=== PATIENT | female | born 1990 | race Caucasian/White ===

== ENCOUNTER 2020-06-16 16:31 | Emergency (ER) | payer OTHER, SELFPAY ==
[2020-06-16] VITALS (10 sets, daily range): BP systolic 101–139; BP diastolic 57–84; PULSE 100–122; RESP 16–30; TEMP 37.3; O2SAT 95–98
--- NOTE | ~2020-06-16 | XR_ITS ---
EXAMINATION: XR chest 1V portable 06/16/2020 17:48 INDICATION: Cough and fever. Body aches. PROCEDURE: AP portable chest COMPARISON: 09/11/2006 FINDINGS: The lungs are clear. The cardiomediastinal silhouette is within normal limits. There are no pleural effusions. There is no pneumothorax suspected. IMPRESSION: 1: NO ACUTE CARDIOPULMONARY DISEASE. Reviewed, dictated and finalized at location A. NURSE
--- NOTE | 2020-06-16 16:46 | ED.URI ---
HPI - URI/Sore Throat General Chief Complaint: Upper Respiratory Infection Stated Complaint: I dont feel good Time Seen by Provider: 06/16/20 16:45 History of Present Illness HPI Narrative: 30 yo female presents to the ED for URI symptoms. She reports fever, cough, congestion, BUCK[place], and nausea for the past 3 days. No know sick contacts. No SOB. Related Data Allergies Allergy/AdvReac Type Severity Reaction Status Date / Time cephalexin Allergy Mild HIVES Verified 05/07/19 22:01 Review of Systems Review of Systems: All systems reviewed & are unremarkable except as noted in HPI and below Constitutional: Constitutional: Reports chills and Reports fever(s) Eyes: Eyes: Reports no additional eye complaints ENT: Reports nasal congestion and Denies sore throat Cardiovascular: Cardiovascular: Denies chest pain Respiratory: Respiratory: Reports chest congestion, Reports cough and Denies dyspnea Gastrointestinal: Gastrointestinal: Denies abdominal pain, Reports nausea and Denies vomiting Musculoskeletal: Musculoskeletal: Reports myalgias Neurologic: Denies confusion, Denies numbness and Denies weakness [facility] Past Medical History Medical History (Updated 06/24/20 @ 12:21 by Gaston Marie MD) Healthy female adult Social History Social History Smoking status: Unknown if ever smoked Gender identity (if verbalized by the patient): Female Exam Const: General: no acute distress and alert Orientation/consciousness: patient oriented x3 HENMT: Head: normal to inspection Ears: TM's normal bilaterally and EAC's normal Eyes: Pupils: Equal, round and reactive pupils present EOM: EOMs intact bilaterally Resp: Effort & Inspection: normal respiratory effort Auscultation: clear to auscultation bilaterally Cardio: Rate: regular rate Rhythm: regular rhythm GI: GI Palp: Yes Soft to palpation and No Tenderness to palpation present (GI) Skin: General skin exam: normal color Neuro: General: patient oriented x3, moves all extremities and CN's II-XI intact bilaterally Speech: normal speech Gait exam (Neuro): Normal gait present Extrem: General: normal to inspection Course Vital Signs Vital signs: Vital Signs Temperature 37.3 C 06/16/20 16:37 Pulse Rate 122 H 06/16/20 16:37 Respiratory Rate 18 06/16/20 16:37 Blood Pressure 139/84 06/16/20 16:37 Pulse Oximetry 98 06/16/20 16:37 Temperature 37.3 C 06/16/20 16:37 Pulse Rate 100 06/16/20 19:26 Respiratory Rate 20 06/16/20 19:26 Blood Pressure 101/57 L 06/16/20 19:26 Pulse Oximetry 96 06/16/20 19:26 MDM - URI/Sore Throat MDM Narrative Medical decision making narrative: Symptoms suspicious for COVID-19. Vital stable. Will test and treat symptomatically Differential Diagnosis Differential diagnosis: Likely upper respiratory infection, influenza and other (COVID-19) Medical Records Attestation: I reviewed the patient's medical records. Lab Data Attestation: I reviewed the patient's lab results. Result diagrams: 06/16/20 18:03 06/16/20 18:03 Labs: Lab Results 06/16/20 06/16/20 06/16/20 Range/Units 18:03 18:03 18:03 WBC 2.0 L (4.5-10.0) K/mm3 RBC 4.62 (4.2-5.4) M/mm3 Hgb 13.1 (12.0-15.0) g/dL Hct 39.5 (37.0-47.0) % MCV 85.5 (80-100) fl MCH 28.4 (26-34) pg MCHC 33.2 (32-36) g/dl RDW 13.0 (11.5-14.5) % Plt Count 126 L (150-375) k/mm3 MPV 10.6 H (7.4-10.4) fl Immature Gran % (Auto) 0.5 (0-0.5) % Neut % (Auto) 61.7 (45.5-73.1) % Lymph % (Auto) 30.4 (18.3-44.2) % [place] % (Auto) 7.4 (2.6-8.5) % Eos % (Auto) 0.0 (0-4.4) % Baso % (Auto) 0.0 L (0.2-1.2) % Lymph # (Auto) 0.62 L (0.9-3.2) K/mm3 [place] # (Auto) 0.2 (0.1-0.6) K/mm3 Eos # (Auto) 0.0 (0-0.3) K/mm3 Baso # (Auto) 0.0 (0.0-0.1) K/mm3 Abs Immat Gran (auto) 0.01 (0.00-0.031) K/mm3 Ab
--- NOTE | 2020-06-16 17:10 | PC.NURSE ---
EMT student and RN x2 at bedside attempting blood draw and IV start.
[2020-06-16] MEDS: SODIUM CHLORIDE 0.9% IV 1,000 ML 999 ML IV CONT (18:00)
[2020-06-16] MEDS: ONDANSETRON INJ 4 MG/2 ML VIAL IV PUSH (18:00)
[2020-06-16] MEDS: KETOROLAC 30 MG/ML VIAL (*BKC) IV PUSH (18:01)
[2020-06-16 18:17] LABS: Hematocrit 39.5 % (37.0-47.0); Hemoglobin 13.1 g/dL (12.0-15.0); Immature Granulocyte Absolute 0.01 K/mm3 (0.00-0.031); Immature Granulocyte Percent A 0.5 % (0-0.5); Immature Platelet Fraction Pct 2.8 % (0.9-11.2); Lymphocytes Absolute Auto 0.62 K/mm3 (0.9-3.2); Lymphocytes Percent Auto 30.4 % (18.3-44.2); Mean Corpuscular HGB Conc 33.2 g/dl (32-36); Mean Corpuscular Hemoglobin 28.4 pg (26-34); Mean Corpuscular Volume 85.5 fl (80-100); Mean Platelet Volume 10.6 fl (7.4-10.4); Monocytes Absolute Auto 0.2 K/mm3 (0.1-0.6); Monocytes Percent Auto 7.4 % (2.6-8.5); Neutrophils Absolute Auto 1.3 K/mm3 (1.3-6.7); Neutrophils Percent Auto 61.7 % (45.5-73.1); Platelet Count Result 126 k/mm3 (150-375); Red Blood Count 4.62 M/mm3 (4.2-5.4)
[2020-06-16 18:27] LABS: Alanine Aminotransferase 32 U/L (4-35); Albumin Level 3.7 g/dL (3.5-5.1); Alkaline Phosphatase 66 U/L (38-126); Anion Gap 7 mmol/L (8-16); Aspartate Amino Transferase 44 U/L (14-36); Bilirubin,Total 0.4 mg/dL (0.2-1.3); Blood Urea Nitrogen 9 mg/dL (7-17); Calcium 7.9 mg/dL (8.4-10.2); Carbon Dioxide 25 mmol/L (22-30); Chloride 103 mmol/L (98-107); Estimated CRCL calculation 100 ml/min; Estimated Glomerular Filt Rate > 60; Glucose 92 mg/dL (65-105); Potassium 4.1 mmol/L (3.4-5.0); Sodium 135 mmol/L (137-145)
--- NOTE | 2020-06-16 18:45 | PC.NURSE ---
Pt states is feeling better. IVF continue to infuse.
[2020-06-17 17:10] LABS: SARS-CoV-2 RNA PCR Negative
== END 2020-06-16 19:27 | disposition home or self-care (01) ==
PROVIDERS: Emergency Provider Emergency Medicine; PCP Internal Medicine Gastroenterology
DX: J06.9 Acute upper respiratory infection, unspecified (principal); Z20.828 Contact with and (suspected) exposure to other viral communicable diseases
CPT/HCPCS: 11720; 36415; 71045; 80053; 85025; 85055; 87635; 87804; 96361; 96374; 96375; 99284; C9803; J1885; J2405; J7030; U0003

== ENCOUNTER 2022-09-14 15:55 | Emergency (ER) | payer OTHER, SELFPAY ==
[2022-09-14 16:05] VITALS: BP 153/89; PULSE 91; RESP 16; TEMP 36.8; O2SAT 97
--- NOTE | 2022-09-14 16:44 | ED.EAR ---
HPI - Ear Problem General Chief complaint: Ear Stated complaint: Right Ear Irritation Time Seen by Provider: 09/14/22 16:45 Source: patient Mode of arrival: ambulatory Limitations: no limitations History of Present Illness HPI Narrative: 32-year-old female presented for complaint of right ear pain for 3 days. Endorses pain is constant, sharp, the ear feels clogged and cannot hear out of it, and she has a high-pitched ringing. Taking Tylenol for pain. Endorses recent sinus congestion and drainage. Denies dizziness, nausea, vomiting, fevers or chills. MD Complaint: ear pain Related Data Allergies Allergy/AdvReac Type Severity Reaction Status Date / Time cephalexin Allergy Mild HIVES Verified 05/07/19 22:01 Review of Systems Review of Systems: CONSTITUTIONAL: Denies malaise, chills, or fever. EYES: Denies visual changes, redness, or discharge. ENT: Denies rhinorrhea, congestion, sinus pain, and sore throat. Reports ear pain CARDIOVASCULAR: Denies chest pain, palpitations, or edema. RESPIRATORY: Denies cough or dyspnea. GASTROINTESTINAL: Denies abdominal pain, nausea, vomiting, diarrhea SKIN: Denies rash or itching. MUSCULOSKELETAL: Denies myalgia. NEUROLOGIC: Denies headache. All systems reviewed & are unremarkable except as noted in HPI and below PMFSH Past Medical History Medical History Healthy female adult Social History Social History Smoking status: Unknown if ever smoked Gender identity (if verbalized by the patient): Female Comments At time of signature, agree with nursing past medical, surgical, social and family history. There is no relevant family history pertinent to the presenting complaint Exam Narrative: GENERAL: Well-appearing, appears in pain EYES: PERRLA, conjunctivae clear ENT: Nares clear. Mucous membranes moist. Left TM pearly coronel with dull light reflex; right TM erythematous and bulging with purulent effusion, canal is erythematous and tender; no tragal tenderness. Oropharynx not erythematous without lesions. NECK: Supple. No lymphadenopathy CHEST: Clear to auscultation, breath sounds equal. No wheezing, rhonchi, rales, or stridor. No respiratory distress, speaks in full sentences. HEART: Regular rate and rhythm. No murmur heard. SKIN: Warm, dry, no rash. NEURO: Alert and oriented x3. PSYCH: Normal mood and affect Course Course Emergency Course: Patient is aware of diagnosis, understands and agrees to treatment plan. Anticipatory guidance given. Patient agrees to follow-up as directed and is aware of reasons to seek care at the emergency department. Portions of this record may have been created with voice recognition software Level of Care: Express Care Visit Vital Signs Vital signs: Vital Signs Temperature 98.2 F 09/14/22 16:05 Pulse Rate 91 09/14/22 16:05 Respiratory Rate 16 09/14/22 16:05 Blood Pressure 153/89 H 09/14/22 16:05 Pulse Oximetry 97 09/14/22 16:05 Oxygen Delivery Room Air 09/14/22 16:05 Temperature 98.2 F 09/14/22 16:05 Pulse Rate 91 09/14/22 16:05 Respiratory Rate 16 09/14/22 16:05 Blood Pressure 153/89 H 09/14/22 16:05 Pulse Oximetry 97 09/14/22 16:05 Oxygen Delivery Room Air 09/14/22 16:05 Reviewed Medical Decision Making MDM Narrative Medical decision making narrative: Discussed physical findings with patient. Will give antibiotic for AOM and EO. advised supportive measures and signs/symptoms to go to the ER. Patient is appropriate for outpatient treatment and follow-up. Differential Diagnosis Differential Diagnosis: Coronavirus, strep pharyngitis, allergic rhinitis, upper respiratory tract infection, sinusitis, rhinosinusitis, nasopharyngitis, viral pharyngitis, otitis media, otitis externa, eustachian tube dysfunction, foreign body, cerumen impaction. Vital Signs Vital Signs: Vital Signs Temperat
== END 2022-09-14 16:59 | disposition home or self-care (01) ==
PROVIDERS: Emergency Provider Nurse Practitioner Family
DX: H66.001 Acute suppurative otitis media without spontaneous rupture of ear drum, right ear (principal); H60.501 Unspecified acute noninfective otitis externa, right ear
CPT/HCPCS: 99213; G0463

== ENCOUNTER 2023-04-28 19:09 | Emergency (ER) | payer OTHER, SELFPAY ==
[2023-04-28 19:33] VITALS: BP 126/72; PULSE 98; RESP 16; TEMP 36.8; O2SAT 99
--- NOTE | 2023-04-28 19:56 | ED.FEMALEGU ---
HPI - Female Genitourinary General Chief complaint: Urogenital-Female Stated complaint: urinary issue Source: patient and RN notes reviewed Mode of arrival: ambulatory Limitations: no limitations History of Present Illness HPI Narrative: 33-year-old female presented for complaint of urinary frequency, urgency, and burning with urination. Endorses lower abdominal pain and blood in urine. Onset 4 days. Increased water intake and cranberry juice. Endorses history of UTIs, but states last was about 5 years ago. She denies nausea, vomiting, diarrhea, flank pain, fevers or chills. Related Data Home Medications Medication Instructions Recorded Confirmed etonogestrel 0.12 mg-ethinyl 1 vag ring vaginal DAILY 04/28/23 04/28/23 estradiol 0.015 mg/24 hr vaginal ring Allergies Allergy/AdvReac Type Severity Reaction Status Date / Time cephalexin Allergy Mild HIVES Verified 04/28/23 19:29 Review of Systems Review of Systems: CONSTITUTIONAL: Denies body aches, fever, chills, or sweats. CARDIOVASCULAR: Denies chest pain, palpitations, or edema. RESPIRATORY: Denies cough or dyspnea. GASTROINTESTINAL: Denies abdominal pain, nausea, vomiting, or diarrhea. GENITOURINARY: Reports dysuria, frequency, urgency, hematuria, denies flank pain SKIN: Denies rash, itching, or wounds. MUSCULOSKELETAL: Denies back pain or myalgia. [facility] Past Medical History Medical History Healthy female adult Social History Social History Smoking status: Unknown if ever smoked Gender identity (if verbalized by the patient): Female Comments At time of signature, I have reviewed and agree with nursing past medical, surgical, social and family history unless otherwise noted. Please see nursing chart for further information. There is no relevant family history pertinent to the presenting complaint Exam Narrative: GENERAL: Well-appearing and in no acute distress. HEAD: Normocephalic EYES: EOMI. . ENT: Mucous membranes pink and moist. NECK: Normal AROM. Supple. CHEST: No respiratory distress. Clear to auscultation. HEART: Regular rate and rhythm. ABDOMEN: Soft, nondistended, normal active bowel sounds. Bilateral lower abdominal tenderness with palpation. No CVA tenderness MUSCULOSKELETAL: No bony tenderness. SKIN: Warm, dry, no rash. NEURO: No focal deficits. Alert and oriented x3. Gait steady. PSYCH: Normal affect. Course Course Emergency Course: Patient is aware of diagnosis, understands and agrees to treatment plan. Anticipatory guidance given. Patient agrees to follow-up as directed and is aware of reasons to seek care at the emergency department. Portions of this record may have been created with voice recognition software Level of Care: Express Care Visit Vital Signs Vital signs: Vital Signs Temperature 98.2 F 04/28/23 19:33 Pulse Rate 98 04/28/23 19:33 Respiratory Rate 16 04/28/23 19:33 Blood Pressure 126/72 04/28/23 19:33 Pulse Oximetry 99 04/28/23 19:33 Oxygen Delivery Room Air 04/28/23 19:33 Temperature 98.2 F 04/28/23 19:33 Pulse Rate 98 04/28/23 19:33 Respiratory Rate 16 04/28/23 19:33 Blood Pressure 126/72 04/28/23 19:33 Pulse Oximetry 99 04/28/23 19:33 Oxygen Delivery Room Air 04/28/23 19:33 Reviewed MDM - Female Genitourinary MDM Narrative Medical decision making narrative: Results of urine reviewed with patient. Will send for culture. Rx Macrobid. Discussed physical exam findings. Advised supportive measures and signs/symptoms to go to the ER. Pt is appropriate for outpt treatment and f/u. Differential Diagnosis Differential diagnosis: Likely urinary tract infection and cystitis Lab Data Labs: Urine Glucose Negative Reference Range: Negative Urine Bilirubi
== END 2023-04-28 20:05 | disposition home or self-care (01) ==
PROVIDERS: Emergency Provider Nurse Practitioner Family
DX: N39.0 Urinary tract infection, site not specified (principal); B95.7 Other staphylococcus as the cause of diseases classified elsewhere
CPT/HCPCS: 81003; 87077; 87086; 87088; 99213; G0463

== ENCOUNTER 2023-08-18 11:31 | Emergency (ER) | payer OTHER, SELFPAY ==
[2023-08-18 11:50] VITALS: BP 151/82; PULSE 83; RESP 16; TEMP 36.4; O2SAT 99
--- NOTE | 2023-08-18 12:40 | ED.DENTAL ---
HPI - Dental/Oral General Chief complaint: Dental/Oral Stated complaint: tooth pain,swollen face right side Time Seen by Provider: 08/18/23 12:35 Source: patient, RN notes reviewed and old records reviewed Mode of arrival: ambulatory Limitations: no limitations History of Present Illness HPI Narrative: 33 year old female who presents to [facility] with complaint 2 day history of dental pain and facial swelling to right side of face. Patient reports pain to the upper right 1st molar which is broken off and pustule with purulent drainage noted along gum line. Patient reports that she slept with a heating pad to face last night and pain has decreased but purulent drainage now from pustule on gum line. Patient has no trismus or any Clint angina noted, states some pain decrease since drainage from gum.Patient has been taking Ibuprofen for her discomfort with no known fevers,no chills or sweats. MD Complaint: tooth pain Location: Tooth # (5) Onset (ago): day(s) (2 days) Severity scale (1-10): 4 Treatment prior to arrival: oral analgesic and other (warmth to face) Related Data Allergies Allergy/AdvReac Type Severity Reaction Status Date / Time cephalexin Allergy Mild HIVES Verified 04/28/23 19:29 Review of Systems Review of Systems: CONSTITUTIONAL: Denies fever, chills, or sweats. ENT: Denies rhinorrhea, congestion, sore throat, or otalgia. Reports dental pain #5 tooth which is broken off with pustule noted along gum line above tooth, right facial swelling CARDIOVASCULAR: Denies chest pain, palpitations, or edema. RESPIRATORY: Denies cough or dyspnea. SKIN: Denies rash or itching. MUSCULOSKELETAL: Denies myalgia. NEUROLOGIC: Denies headache All systems reviewed & are unremarkable except as noted in HPI and below PMFSH Past Medical History Medical History (Updated 08/19/23 @ 20:16 by Brandie Villalta NP) Healthy female adult Urinary tract infection Surgical History Surgical History (Updated 08/19/23 @ 20:15 by Brandie Villalta NP) Previous section x3 Social History Social History (Updated 08/19/23 @ 20:15 by Brandie Villalta NP) Smoking status: Never smoker Gender identity (if verbalized by the patient): Female Comments At time of signature, agree with nursing past medical, surgical, social and family history. There is no relevant family history pertinent to the presenting complaint Exam Narrative: GENERAL: Well-appearing, well-nourished, and in no acute distress. HEAD: Normocephalic, atraumatic. EYES: PERRLA and EOMI. ENT: Nares clear, no rhinorrhea or epistaxis. Mucous membranes moist.#5 tooth broken with caries, right sided facial swelling mild, abscess along gum above #5 tooth NECK: Supple no lymphadenopathy. CHEST: Clear to auscultation. No respiratory distress.SAO2 99% on room air HEART: Regular rate and rhythm. No murmur heard. Normal peripheral pulses. SKIN: Warm, dry, no rash. NEURO: No focal deficits. Alert and oriented x3. Course Course Emergency Course: Patient is aware of diagnosis, understands and agrees to treatment plan. Anticipatory guidance given. Patient agrees to follow-up as directed and is aware of reasons to seek care at the emergency department. Portions of this record may have been created with voice recognition software Level of Care: Express Care Visit Vital Signs Vital signs: Vital Signs Temperature 36.4 C 08/18/23 11:50 Pulse Rate 83 08/18/23 11:50 Respiratory Rate 16 08/18/23 11:50 Blood Pressure 151/82 H 08/18/23 11:50 Pulse Oximetry 99 08/18/23 11:50 Oxygen Delivery Room Air 08/18/23 11:50 Temperature 36.4 C 08/18/23 11:50 Pulse Rate 83 08/18/23 11:50 Respiratory Rate 16 08/18/23 11:50 Blood Pressure 151/82 H 08/18/23 11:50 Pulse Oximetry 99 08/18/23 11:50 Oxygen Delivery Room Air 08/18/23 11:50 Reviewed MDM - Dental/Oral MDM Narrative Medical decision making narrative: Patients pain and com
== END 2023-08-18 13:05 | disposition home or self-care (01) ==
PROVIDERS: Emergency Provider Registered Nurse
DX: K04.7 Periapical abscess without sinus (principal)
CPT/HCPCS: 99213; G0463

== ENCOUNTER 2024-05-04 12:16 | Outpatient (CLI) | payer OTHER, SELFPAY | END 2024-05-04 12:17 | disposition home or self-care (01) | LOC: ANHSURGERY 12:20 | PROVIDERS: Visit Provider Obstetrics & Gynecology | DX: Z01.812 Encounter for preprocedural laboratory examination (principal); R10.2 Pelvic and perineal pain | CPT/HCPCS: 36415; 86850; 86900; 86901 ==

== ENCOUNTER 2024-05-11 01:10 | Day surgery (SDC) | payer OTHER, SELFPAY ==
--- NOTE | 2024-05-02 17:44 | SUR.PREOP ---
Report to the Outpatient Waiting Room, entrance under the green pavilion located off [facility], at time _0900_ on date _05/11/2024_. Planned Procedure Time: _1100_.? Time changes happen often and if your time is changed the preop area will call you the afternoon before. - You and your visitor will be asked to self-screen and do not enter if you have any COVID symptoms. Please call surgeon if you need to reschedule. - A mask is optional within the hospital at this time. Patients may have clear liquids (water, carbonated beverages, clear teas, apple juice) until 3 hours (0800) prior to surgery with a maximum of 20 ounces. - No food from midnight until time of surgery and no smoking - Infants may have breast milk until 4 hours before surgery, formula 6 hours prior to surgery. - Children will be allowed to drink immediately following surgery.? If applicable, please bring a bottle or sippy cup to assist with drinking. Juice, water, soda, and popsicles are readily available.? For infants on formula, please bring formula the day of surgery.? Pacifiers are allowed. Take only the following medications with a SIP of water on the morning of surgery: _NA_ DO NOT STOP ANY OF YOUR OTHER PRESCRIPTION MEDICATIONS PRIOR TO SURGERY EXCEPT THE FOLLOWING Medications to discontinue per physician _NA_ Date to take last dose_NA_ Please no make-up, nail citizen of [place], hairspray, perfume, deodorant, or body powder the day of surgery.? No jewelry (including any body piercings) or valuables the day of surgery, leave them at home.? Please take a shower or bath the night before, or the morning of, surgery with an antibacterial soap.? Wear comfortable, loose fitting clothing.? Children are encouraged to wear pajamas. - Jewelry must be removed prior to entering the operating room.? Rings and piercings that are not removed may be cut off. - The hospital will not accept responsibility for valuables.? - Please leave all valuables, including medications, at home the day of surgery. If you are going home after surgery, a licensed bus driver must drive you home.? - NO public transportation without another adult if you receive anesthesia. - We recommend that an adult stay with you for 24 hours following discharge. - We also recommend that you do not drive, make important decision, drink alcoholic beverages, or take any drugs that were not prescribed by your health care provider for at least 24 hours after your discharge time. For Pediatric surgeries, we recommend two adults accompany the child home. Follow any additional instructions given to you from your surgeon. Telephone instructions given to _Kristian_and asked if any additional questions and then verbalized understanding. Patient advised to call surgeon office or pre surgery nurse liaison [phone] if any additional questions.
[2024-05-02 17:57] VITALS: BMI 39.6
--- NOTE | 2024-05-08 12:12 | PM.IMHP ---
H&P: HPI History of Present Illness Date/Time: 05/08/24 12:12 Chief Complaint: Pelvic pain Narrative: 32 old 3 para 3 status post section x3 admitted for diagnostic laparoscopy secondary to the pelvic pain. She has had negative imaging with negative STD testing. Risks and benefits of this procedure reviewed including not exclusive , aspiration pneumonia, bleeding, transfusion, perforation injury to bowel bladder, ureters, or other internal organs with need for open laparotomy. She received the [employer] handout entitled laparoscopy. She had all questions answered. Asked to proceed Review of Systems Review of Systems: CONSTITUTIONAL: Denies fever, chills, or sweats. ENT: Denies rhinorrhea, congestion, sore throat, or otalgia. Reports dental pain #5 tooth which is broken off with pustule noted along gum line above tooth, right facial swelling CARDIOVASCULAR: Denies chest pain, palpitations, or edema. RESPIRATORY: Denies cough or dyspnea. SKIN: Denies rash or itching. MUSCULOSKELETAL: Denies myalgia. NEUROLOGIC: Denies headache All systems reviewed & are unremarkable except as noted in HPI and below PMFSH Past Medical History Medical History Healthy female adult Urinary tract infection Surgical History Surgical History Previous section x3 Social History Social History Smoking status: Never smoker Second hand tobacco smoke exposure: No Alcohol intake: current Alcohol use details: OCCASSIONAL Substance use: current Substance use type: marijuana Living arrangements: with family Additional living arrangements comments: with parents and children Gender identity (if verbalized by the patient): Female Spiritual care concerns: No Meds Home Medications and Allergies Home Medications Medication Instructions Recorded Confirmed Type No Home Medications 05/02/24 05/02/24 History Allergies Allergy/AdvReac Type Severity Reaction Status Date / Time cephalexin Allergy Mild HIVES Verified 05/02/24 17:59 Exam Const: General: cooperative, healthy appearing and comfortable Nutritional Appearance: overweight Orientation/consciousness: oriented to person, oriented to place and oriented to time HENMT: Head: normal to inspection Resp: Effort & Inspection: normal respiratory effort Cardio: Rate: regular rate Rhythm: regular rhythm Heart sounds: S1 normal heart sound present and S2 normal heart sound present GI: Inspection: normal to inspection : External Female Exam: normal external appearance Speculum Exam - Vagina: normal appearance of the vagina Speculum Exam - Cervix: normal appearance of the cervix Bimanual exam- vagina & uterus: Uterine tenderness Bimanual Exam- Adnexa, other: tender bilaterally Assessment and Plan Assessment and plan (1) Pelvic pain: Code(s): R10.2 - Pelvic and perineal pain Status: Acute Assessment and Plan: Proceed with diagnostic laparoscopy
[2024-05-11] VITALS (8 sets, daily range): BP systolic 95–130; BP diastolic 55–88; PULSE 75–92; RESP 15–20; TEMP 36.5–36.6; O2SAT 94–99
--- NOTE | 2024-05-11 08:10 | WPDHPUPDATE1 ---
History and Physical Update Update Date/Time: 05/11/24 08:10 History and Physical has been reviewed, including an updated exam of the patient. There are NO changes in the patient's condition. Risks, benefits, and alternatives have been discussed and questions answered. Patient agrees to proceed with procedure.
[2024-05-11] MEDS: ACETAMINOPHEN 500 MG TABLET 1000 MG PO (09:32)
[2024-05-11] MEDS: LACTATED RINGERS 1,000 ML 30 ML IV CONT (09:35)
[2024-05-11] MEDS: KETOROLAC 15 MG/ML VIAL (*BKC) IV PUSH (09:39)
--- NOTE | 2024-05-11 09:43 | P.PNAN_ITS ---
Anes - Initial Pre Proc Eval Procedure: Operation Date: 05/11/24 11:00 Proposed Procedures p Diagnostic Laparoscopy - Lonnie Washington MD Date/Time: 05/11/24 09:43 Surgeon: Lonnie [facility] MD Pre Op Diagnosis: Pelvic Pain Patient Data Age: 34 Gender: F Height: 1.55 m Weight: 95.25 kg Allergies Allergy/AdvReac Type Severity Reaction Status Date / Time cephalexin Allergy Mild HIVES Verified 05/11/24 09:32 Home Medications Medication Instructions Recorded Confirmed Type hydrocodone 5 mg-acetaminophen 325 1 tablet PO Q4H PRN pain #20 tabs 05/11/24 Rx mg tablet Patient hx anesthesia problems: none Family hx anesthesia problems: none Results Review: All pre-operative results and documents have been reviewed as part of the pre- operative evaluation. [facility] Past Medical History Medical History Healthy female adult Urinary tract infection Surgical History Surgical History Previous section x3 Social History Social History Smoking status: Never smoker Second hand tobacco smoke exposure: No Alcohol intake: current Alcohol use details: OCCASSIONAL Substance use: current Substance use type: marijuana Living arrangements: with family Additional living arrangements comments: with parents and children Gender identity (if verbalized by the patient): Female Spiritual care concerns: No Anes - Eval Final PreProcedure Day of Procedure 05/11/24 09:43 Patient weight: obese Heart: regular rate and rhythm Lungs: clear to auscultation Airway: Mallampati scale class II and special considerations poor dentition (a few broken teeth ) Neurological: alert and oriented Last oral intake: >/= 8 hours ASA classification: II Emergent: no Anesthetic plan: proceed Anesthesia type and monitoring: general ETT and standard monitoring Results Review: All pre-operative results and documents have been reviewed as part of the pre- operative evaluation. Patient states occasional acid reflux with she controls with OTC medication. And marijuana use a few times a week. No other concerns at this time. Informed Consent: The patient's anesthetic plan and its attendant risks and benefits were discussed with the patient/family/POA. Questions were solicited and answers provided to the satisfaction of the patient/family/POA.
[2024-05-11 09:55] LABS: BEDSIDEPREGUCG Negative (Negative)
--- NOTE | 2024-05-11 10:22 | W.PM.PROC2 ---
Procedure Note - Detailed Date of Procedure 05/11/24 Pre-op Diagnosis Pelvic Pain Post-op Diagnosis Other (Pelvic pain /endometriosis) Procedure Performed laparoscopy with cauterization of endometriosis Surgeon Lonnie Washington MD Anesthesia General Indications this is a 34-year-old female with severe pelvic pain Findings endometriosis in the form of powder burn endometriosis on the left and right uterosacral ligament. Blistered endometriosis on each ovary and the left fallopian tube Description of Procedure the patient was prepped draped in sterile fashion placed in the dorsal lithotomy position. Under excellent general trach anesthesia a weighted speculum placed in posterior fornix of vagina. Anterior lip of the cervix grasped with single-tooth tenaculum. Suarez's cannula inserted the cervix attached to the single-tooth. The Nenita be used later for uterine manipulation. After emptying the bladder clear urine the weighted speculum was removed the gloves were changed. A supraumbilical incision made the Veress needle passed in the abdomen. Abdomen filled with CO2 gas [id number]. The 5mm trocar advanced with the optic scope in no injury seen. Patient placed in Trendelenburg and a suprapubic incision made. The 5mm trocar advanced under direct visualization assuring no injury. The areas of endometriosis were seen about 20cc of serosanguineous fluid seen in the cul-de-sac and this was suction and removed. The areas of endometriosis along the right left uterosacral ligaments were cauterized as were the areas of endometriosis on the left and right ovary and the left tube. Irrigation undertaken until clear. The appendix appeared within normal limits. The liver edge was normal. The instruments withdrawn the pain and the gas removed from the abdomen. The incisions closed with 4-0 Monocryl and glue. The patient went recovery in satisfactory condition. All sponge, needle, instrument counts were correct. There were no immediate complications Estimated Blood Loss 5 Drains No Packing No Pathology None sent Complications No immediate complications Condition Stable Disposition PACU
[2024-05-11] MEDS: ONDANSETRON INJ 4 MG/2 ML VIAL IV PUSH (10:45)
[2024-05-11] MEDS: diphenhydrAMINE HCl INJ 50 MG/ML VIAL 12.5 MG IV PUSH (10:56)
[2024-05-11] MEDS: fentaNYL CITRATE INJ (*CRX) 100 MCG/2 ML VIAL 25 MCG IV PUSH (11:06)
[2024-05-11] MEDS: oxyCODONE HCL (*CRX) 5 MG TAB IR PO (11:37)
== END 2024-05-11 12:00 | disposition home or self-care (01) ==
PROVIDERS: Anesthesiology; Visit Provider Obstetrics & Gynecology
PROC: (CPT 49320; principal; 2024-05-11 11:00)
DX: N80.3C3 Endometriosis of bilateral uterosacral ligament(s), unspecified depth (principal); N80.103 Endometriosis of bilateral ovaries, unspecified depth; N80.202 Endometriosis of left fallopian tube, unspecified depth; F12.90 Cannabis use, unspecified, uncomplicated; E66.9 Obesity, unspecified; Z68.41 Body mass index [BMI] 40.0-44.9, adult
CPT/HCPCS: 58662; A9270; J1100; J1200; J1885; J2003; J2250; J2405; J2704; J3010; J7120

== ENCOUNTER 2024-07-03 18:34 | Inpatient (IN) | payer OTHER, SELFPAY ==
--- NOTE | ~2024-07-03 | XR_ITS ---
EXAMINATION: XR chest 1V DATE: 07/04/2024 16:25 INDICATION: Cough. TECHNIQUE: A single lateral view of the chest was obtained. COMPARISON: Chest single view 07/03/2024 FINDINGS: There is no pneumonia, pleural effusion, or pneumothorax. The heart size is normal. IMPRESSION: 1. No acute cardiopulmonary disease. Reviewed, dictated and finalized at location A. STANT PROJECT MANAGER
--- NOTE | ~2024-07-03 | XR_ITS ---
CHEST RADIOGRAPH CLINICAL HISTORY: sepsis . COMPARISON: 07/28/2020 TECHNIQUE: Single portable view of the chest. FINDINGS The cardiomediastinal silhouette is unremarkable. Reticulonodular parenchymal pattern with significant peribronchial thickening, an interval change fro m 08/07/2020. Increased opacification within the left lung base, possibly an underlying left infiltrate. Lateral vi ew would provide additional information, if the patient is clinically able. IMPRESSION: Reticulonodular parenchymal pattern with significant peribronchial thickening with a possible underly ing left basilar infiltrate for which lateral view is suggested, if the patient is clinically able. Reviewed, dictated and finalized at location A. TRICAL VARIETY AGENT IMPRESSION: Reticulonodular parenchymal pattern with significant peribronchial thickening w ith a possible underlying left basilar infiltrate for which lateral view is sug gested, if the patient is clinically able.
[2024-07-03 18:51] VITALS: BP 142/81; PULSE 121; RESP 18; TEMP 39.3; O2SAT 97
[2024-07-03 19:34] LABS: Glucose Point of Care 111 mg/dl (65-105)
--- NOTE | 2024-07-03 19:39 | PC.NURSE ---
Pts family come to triage desk stating pt was unconscious. This RN approached pt, pt had eyes open and able to maintain eye contact with RN. Pt able to give hand for a blood sugar check. Blood sugar of 111 at this time. varnish blender made aware of pts vitals and blood sugar. Cold wash cloth and Ice pack given to pt for fever at this time.
--- NOTE | 2024-07-03 21:53 | ECG_ITS ---
Test Date: 2024-07-03 21:58:56 Measurements Intervals Poth Rate: 108 P: 67 DC: 129 QRS: 8 QRSD: 82 T: -5 QT: 311 QTc: 418 Interpretive Statements SINUS TACHYCARDIA No previous ECG available for comparison Electronically Signed On 07-04-2024 15:10:18 SENIOR OCCUPATIONAL THERAPIST by Donya Rock M.D.
[2024-07-03 22:15] VITALS: BP 134/82; PULSE 106; RESP 26; O2SAT 97
[2024-07-03 22:46] LABS: Basophils Percent Auto 0.3 % (0.2-1.2); Hematocrit 36.7 % (37.0-47.0); Hemoglobin 12.4 g/dL (12.0-15.0); Immature Granulocyte Absolute 0.07 K/mm3 (0.00-0.031); Immature Granulocyte Percent A 0.5 % (0-0.5); Lymphocytes Absolute Auto 1.71 K/mm3 (0.9-3.2); Lymphocytes Percent Auto 12.2 % (18.3-44.2); Mean Corpuscular HGB Conc 33.8 g/dl (32-36); Mean Corpuscular Hemoglobin 28.9 pg (26-34); Mean Corpuscular Volume 85.5 fl (80-100); Mean Platelet Volume 10.2 fl (7.4-10.4); Monocytes Absolute Auto 1.8 K/mm3 (0.1-0.6); Monocytes Percent Auto 13.2 % (2.6-8.5); Neutrophils Absolute Auto 10.3 K/mm3 (1.3-6.7); Neutrophils Percent Auto 73.8 % (45.5-73.1); Platelet Count Result 193 k/mm3 (150-375); Red Blood Count 4.29 M/mm3 (4.2-5.4); Red Cell Distribution Width 12.8 % (11.5-14.5)
[2024-07-03 22:59] LABS: Alanine Aminotransferase 31 U/L (6-35); Albumin Level 4.1 g/dL (3.5-5.1); Alkaline Phosphatase 80 U/L (38-126); Anion Gap 9 mmol/L (4-12); Aspartate Amino Transferase 27 U/L (14-36); Bilirubin,Total 0.9 mg/dL (0.2-1.3); Blood Urea Nitrogen 11 mg/dL (7-17); Calcium 8.8 mg/dL (8.4-10.2); Carbon Dioxide 24 mmol/L (22-30); Chloride 103 mmol/L (98-107); Estimated CRCL calculation 84 ml/min; Estimated Glomerular Filt Rate > 60; Glucose 102 mg/dL (65-110); Lipase 52 U/L (23-300); Potassium 3.6 mmol/L (3.4-5.0); Sodium 136 mmol/L (137-145)
[2024-07-03] MEDS: SODIUM CHLORIDE 0.9% IV 1,000 ML 999 ML IV CONT (23:01)
[2024-07-03] MEDS: ACETAMINOPHEN 325 MG TABLET 650 MG PO (23:01)
[2024-07-03] MEDS: ONDANSETRON INJ 4 MG/2 ML VIAL IV PUSH (23:01)
[2024-07-03 23:12] LABS: Magnesium 1.9 mg/dL (1.6-2.3)
--- NOTE | 2024-07-04 00:02 | ED.GENADULT ---
HPI - General Adult General Chief complaint: Nausea/Vomiting/Diarrhea Stated complaint: unresponsive, N/V/D Time Seen by Provider: 07/03/24 22:37 History of Present Illness HPI narrative: Patient is a 34-year-old female who presents to the emergency department this complaining of nausea, vomiting and diarrhea for the past 3 days. Patient today was very lethargic and secondary to this her son called 911 and she was brought to our facility for further evaluation. Patient states that she just feels tired and sleepy but is answering all my questions appropriately and following all of my commands. She admits that the whole house has been sick with some GI/upper respiratory infection. She is denying any urinary symptoms including dysuria or hematuria but states that she does have bilateral flank pain. Admits that she has been running fevers at home. No additional symptoms or concerns at this time. Related Data Allergies Allergy/AdvReac Type Severity Reaction Status Date / Time cephalexin Allergy Mild HIVES Verified 07/03/24 18:55 Review of Systems Review of Systems: All systems are reviewed and are negative unless stated otherwise in the HPI. PMFSH Past Medical History Medical History Urinary tract infection Healthy female adult Surgical History Surgical History Previous section x3 Social History Social History Smoking status: Never smoker Second hand tobacco smoke exposure: No Alcohol intake: current Alcohol use details: OCCASSIONAL Substance use: current Substance use type: marijuana Living arrangements: with family Additional living arrangements comments: with parents and children Gender identity (if verbalized by the patient): Female Spiritual care concerns: No Exam Narrative: General: Alert, awake, febrile, in no acute distress. HEENT: PERRL, no rhinorrhea, no post nasal drip, oropharynx clear. Neck: Trachea midline, no JVD, no lymphadenopathy. Cardiovascular: Tachycardic with regular rhythm, no murmurs, rubs or gallops, no peripheral edema. Respiratory: Clear to auscultation bilaterally, tachypnea, no wheezing, no rhonchi, no rubs, no respiratory distress. Abdomen: Soft, nontender, nondistended, no rebound, no guarding, no peritoneal signs. Musculoskeletal: No joint swelling or deformity, normal muscle tone. Skin: No rashes or petechia, no signs of infection. Psychiatric: Alert and oriented, normal behavior and judgment for situation. Neurological: Alert and oriented to person, place, and time. Follows all commands. No focal deficits, speech is clear and fluent. Course Vital Signs Vital signs: Vital Signs Temperature 102.8 F H 07/03/24 18:51 Pulse Rate 121 H 07/03/24 18:51 Respiratory Rate 18 07/03/24 18:51 Blood Pressure 142/81 H 07/03/24 18:51 Pulse Oximetry 97 07/03/24 18:51 Oxygen Delivery Room Air 07/03/24 18:51 Temperature 102.8 F H 07/03/24 18:51 Pulse Rate 106 H 07/03/24 22:15 Respiratory Rate 26 H 07/03/24 22:15 Blood Pressure 134/82 07/03/24 22:15 Pulse Oximetry 97 07/03/24 22:15 Oxygen Delivery Room Air 07/03/24 18:51 Medical Decision Making MDM Narrative Medical decision making narrative: The patient was evaluated by myself in the emergency department. History is obtained from patient who is an independent historian and physical exam was performed. External medical records were reviewed at this time. IV was established and pertinent tests were ordered. Patient was administered 60 mg of oral Tylenol for a fever and 2 L IV fluid bolus with normal saline and 4 mg of IV Zofran for nausea. Laboratory results obtained revealing a leukocytosis of 14, otherwise unremarkable. Urinalysis did reveal urinary tract infection with 2+ ketones, 3+ blood, positive nitrites, 21-50 rbc's and 51-100 white blood cells. 4+ bacteriuria. At this time patient was informed of these findings at bedside. 750 mg of IV levofloxacin was administered at this time given patient's cephalosporin allergy. Imaging studies obtained included CXR which was independently interpreted by me revealing: Reticulonodular parenchymal pattern with significant peribronchial thickening with a possible underlying left basilar infiltrate for which lateral view is suggested, if the patient is clinically able. Differential diagnosis considerations include sepsis secondary to infectious process such as pneumonia/UTI, gastroenteritis, dehydration, electrolyte derangements. Comorbidities impacting this visit include none. I have evaluated and discussed social determinants of health with the patient that could potentially impact subsequent diagnosis and treatment plans. On repeat assessment of the patient, reevaluation revealed that the patient is doing well and is in no acute distress. Patient symptoms have improved since she arrived to our emergency department. Repeat vital signs were all reviewed and noted to be stable. Differential diagnosis and treatment plan were discussed with the patient at bedside. Patient agrees with discussion and after shared medical decision making agrees with admission. All questions were answered to the patient's satisfaction. Case was discussed with the on-call hospitalist Dr. Morris at 0125 who accepted admission. Per her request, patient was started on aztreonam and azithromycin for broader antibiotic coverage. Vital Signs Vital Signs: Vital Signs Temperature 102.8 F H 07/03/24 18:51 Pulse Rate 121 H 07/03/24 18:51 Respiratory Rate 18 07/03/24 18:51 Blood Pressure 142/81 H 07/03/24 18:51 Pulse Oximetry 97 07/03/24 18:51 Oxygen Delivery Room Air 07/03/24 18:51 Temperature 102.8 F H 07/03/24 18:51 Pulse Rate 106 H 07/03/24 22:15 Respiratory Rate 26 H 07/03/24 22:15 Blood Pressure 134/82 07/03/24 22:15 Pulse Oximetry 97 07/03/24 22:15 Oxygen Delivery Room Air 07/03/24 18:51 Lab Data 07/03/24 22:12 07/03/24 22:12 Labs: Lab Results 07/03/24 07/03/24 07/04/24 Range/Units 19:31 22:12 00:15 WBC 14.0 H (4.5-10.0) K/mm3 RBC 4.29 (4.2-5.4) M/mm3 Hgb 12.4 (12.0-15.0) g/dL Hct 36.7 L (37.0-47.0) % MCV 85.5 (80-100) fl MCH 28.9 (26-34) pg MCHC 33.8 (32-36) g/dl RDW 12.8 (11.5-14.5) % Plt Count 193 D (150-375) k/mm3 MPV 10.2 (7.4-10.4) fl Immature Gran % (Auto) 0.5 (0-0.5) % Neut % (Auto) 73.8 H (45.5-73.1) % Lymph % (Auto) 12.2 L (18.3-44.2) % [place] % (Auto) 13.2 H (2.6-8.5) % Eos % (Auto) 0.0 (0-4.4) % Baso % (Auto) 0.3 (0.2-1.2) % Lymph # (Auto) 1.71 (0.9-3.2) K/mm3 [place] # (Auto) 1.8 H (0.1-0.6) K/mm3 Eos # (Auto) 0.0 (0-0.3) K/mm3 Baso # (Auto) 0.0 (0.0-0.1) K/mm3 Abs Immat Gran (auto) 0.07 H (0.00-0.031) K/mm3 Absolute Neuts (auto) 10.3 H (1.3-6.7) K/mm3 Absolute Nucleated RBC 0.000 (0.0-0.012) K/mm3 Nucleated RBC % 0.0 (0.0-0.2) % Sodium 136 L (137-145) mmol/L Potassium 3.6 (3.4-5.0) mmol/L Chloride 103 (98-107) mmol/L Carbon Dioxide 24 (22-30) mmol/L Anion Gap 9 (4-12) mmol/L BUN 11 (7-17) mg/dL Creatinine 0.90 (0.7-1.0) mg/dL Estim Creat Clear Calc 84 ml/min Estimated GFR > 60 (59 - ) Glucose 102 (65-110) mg/dL POC Capillary Glucose 111 H (65-105) mg/dl Lactic Acid 0.7 (0.7-2.0) mmol/L Calcium 8.8 (8.4-10.2) mg/dL Magnesium 1.9 (1.6-2.3) mg/dL Total Bilirubin 0.9 (0.2-1.3) mg/dL AST 27 (14-36) U/L ALT 31 (6-35) U/L Alkaline Phosphatase 80 (38-126) U/L Total Protein 8.0 (6.3-8.2) g/dL Albumin 4.1 (3.5-5.1) g/dL Lipase 52 (23-300) U/L Urine Color (Yellow) Urine Appearance (Clear) Urine pH (5.0-9.0) Ur Specific [place] (1.001-1.035) Urine Protein (Negative) mg/dL Urine Glucose (UA) (Negative) mg/dL Urine Ketones (Negative) mg/dL Ur Blood (Man) (Negative) Urine Nitrate (Negative) Urine Bilirubin (Negative) Urine Urobilinogen (<2.0) mg/dL Add Ur Microanalysis Leukocyte Esterase Rfl (Negative) PAIGE/UL Urine RBC (0-2) /hpf Urine WBC (0-3) /hpf Ur Squamous Epith Cells (Few) /hpf Urine Bacteria /hpf Urine Casts POC Urine HCG, Qual (Negative) Influenza A (RT-PCR) Negative (Negative) Influenza B (RT-PCR) Negative (Negative) SARS-CoV-2 RNA (RT-PCR) Negative (Negative) 07/04/24 07/04/24 Range/Units 00:21 00:26 WBC (4.5-10.0) K/mm3 RBC (4.2-5.4) M/mm3 Hgb (12.0-15.0) g/dL Hct (37.0-47.0) % MCV (80-100) fl MCH (26-34) pg MCHC (32-36) g/dl RDW (11.5-14.5) % Plt Count (150-375) k/mm3 MPV (7.4-10.4) fl Immature Gran % (Auto) (0-0.5) % Neut % (Auto) (45.5-73.1) % Lymph % (Auto) (18.3-44.2) % [place] % (Auto) (2.6-8.5) % Eos % (Auto) (0-4.4) % Baso % (Auto) (0.2-1.2) % Lymph # (Auto) (0.9-3.2) K/mm3 [place] # (Auto) (0.1-0.6) K/mm3 Eos # (Auto) (0-0.3) K/mm3 Baso # (Auto) (0.0-0.1) K/mm3 Abs Immat Gran (auto) (0.00-0.031) K/mm3 Absolute Neuts (auto) (1.3-6.7) K/mm3 Absolute Nucleated RBC (0.0-0.012) K/mm3 Nucleated RBC % (0.0-0.2) % Sodium (137-145) mmol/L Potassium (3.4-5.0) mmol/L Chloride (98-107) mmol/L Carbon Dioxide (22-30) mmol/L Anion Gap (4-12) mmol/L BUN (7-17) mg/dL Creatinine (0.7-1.0) mg/dL Estim Creat Clear Calc ml/min Estimated GFR (59 - ) Glucose (65-110) mg/dL POC Capillary Glucose (65-105) mg/dl Lactic Acid (0.7-2.0) mmol/L Calcium (8.4-10.2) mg/dL Magnesium (1.6-2.3) mg/dL Total Bilirubin (0.2-1.3) mg/dL AST (14-36) U/L ALT (6-35) U/L Alkaline Phosphatase (38-126) U/L Total Protein (6.3-8.2) g/dL Albumin (3.5-5.1) g/dL Lipase (23-300) U/L Urine Color Dark yellow (Yellow) Urine Appearance Cloudy H (Clear) Urine pH 5.5 (5.0-9.0) Ur Specific [place] 1.030 (1.001-1.035) Urine Protein 4+ H (Negative) mg/dL Urine Glucose (UA) Negative (Negative) mg/dL Urine Ketones 2+ H (Negative) mg/dL Ur Blood (Man) 3+ H (Negative) Urine Nitrate Positive H (Negative) Urine Bilirubin 1+ H (Negative) Urine Urobilinogen 1.0 (<2.0) mg/dL Add Ur Microanalysis Reviewed Leukocyte Esterase Rfl Negative (Negative) PAIGE/UL Urine RBC 21-50 H (0-2) /hpf Urine WBC 51-100 H (0-3) /hpf Ur Squamous Epith Cells Moderate (Few) /hpf Urine Bacteria 4+ H /hpf Urine Casts 11-20 POC Urine HCG, Qual Negative (Negative) Influenza A (RT-PCR) (Negative) Influenza B (RT-PCR) (Negative) SARS-CoV-2 RNA (RT-PCR) (Negative) Discharge Plan Discharge Clinical Impression: Gastroenteritis, Dehydration, Sepsis, Pyelonephritis, Lobar pneumonia Patient Disposition: Still a Patient Condition: Improved Patient Language: Hungarian Prescriptions: No Action hydrocodone-acetaminophen 5-325 mg tablet 1 tablet PO Q4H PRN (Reason: pain) Qty: 20 0RF Follow-up/Referrals: PHYSICIAN,RESEARCH ANIMAL FACILITY SUPERVISOR [Primary Care Provider] - Time of Disposition: 01:19
--- NOTE | 2024-07-04 00:17 | PC.NURSE ---
blood cultures x 1 set drawn left hand pt ambulatory with steady gait to restroom to attempt to provide a UA
[2024-07-04] MEDS: SODIUM CHLORIDE 0.9% IV 1,000 ML 999 ML IV CONT (00:23)
[2024-07-04 00:48] LABS: Add Urine Microscopic? YES; Appearance Urine Cloudy (Clear); Bacteria Urine 4+ /hpf; Bilirubin Urine 1+ (Negative); Blood Urine 3+ (Negative); Color Urine Dark Yellow (Yellow); Glucose Urine UA Negative (Negative); Ketones Urine 2+ mg/dL (Negative); Leukocyte Esterase Ur Negative LEU/UL (Negative); Need Manual Microscopic Reviewed; Nitrate Urine Positive (Negative); Protein Urine 4+ mg/dL (Negative); RBC Urine 21-50 /hpf (0-2); Squamous Epithelial Cell Urine Moderate /hpf (Few); WBC Urine 51-100 /hpf (0-3); pH Urine 5.5 (5.0-9.0)
[2024-07-04 00:56] LABS: Lactic Acid Reflex 0.7 mmol/L (0.7-2.0)
[2024-07-04 00:57] LABS: BEDSIDEPREGUCG Negative (Negative)
[2024-07-04 01:08] LABS: Influenza A QL RT-PCR Negative (Negative); Influenza B QL RT-PCR Negative (Negative); SARS-CoV-2 RNA PCR Negative (Negative)
[2024-07-04] MEDS: levoFLOXacin 750 MG/D5W 150 ML 750 MG/150 ML BAG 100 MG IVPB (01:21)
[2024-07-04 01:39] VITALS: BP 129/76; PULSE 100; RESP 14; TEMP 37.1; O2SAT 100
[2024-07-04] MEDS: AZTREONAM 2 GM in SODIUM CHLORIDE 0.9% IV 100 ML 200 ML IVPB ×3 (02:55→18:02)
[2024-07-04 03:29] VITALS: BMI 41.3
--- NOTE | 2024-07-04 03:33 | ADMGEN ---
This patient, Kristian Herrera, was admitted to [facility] Room 307-01. Patient/family oriented to hospital policies and general routines including ID bracelet, bed and alarms, visiting hours, pain management, procedures, bathroom and other care routines, personal items, smoking policy, room service/diet, and visiting hours. Information on how to activate the Rapid Response Team has been discussed. Patient/Family are encouraged to report perceived risks to care and to ask questions if they do not understand what they are told or what they should do.
[2024-07-04] MEDS: AZITHROMYCIN 500 MG/NS 250 ML 500 MG/250 ML BAG 250 MG IVPB (03:46)
[2024-07-04 06:45] VITALS: BP 143/73; PULSE 90; RESP 18; TEMP 37.2; O2SAT 95
[2024-07-04 08:42] VITALS: O2SAT 96
[2024-07-04 14:00] VITALS: BP 116/71; PULSE 101; RESP 22; TEMP 37.9; O2SAT 100
[2024-07-04] MEDS: ONDANSETRON INJ 4 MG/2 ML VIAL IV PUSH (14:34)
[2024-07-04] MEDS: ACETAMINOPHEN 325 MG TABLET 650 MG PO ×2 (14:34→21:14)
--- NOTE | 2024-07-04 15:14 | PM.IMHP ---
H&P: HPI History of Present Illness Date/Time: 07/04/24 15:14 Chief Complaint: Generalized Muscle Weakness. Narrative: Patient presented to the ER with reports of increased generalized muscle weakness, fevers, low-back pain, poor appetite, within the last 3 days prior to her presentation. Patient also reported intermittent cough episodes but no sputum. Patient denies any significant urinary symptoms and states she had a UTI years ago and was treated outpatient. Pt denies any recent travels, denies sick contacts, and denies drinking water from external water sources. Initial work-up labs are significant for Leukocytosis, UA with possible UTI, and CXR with possible left basilar infiltrates. Patient not on any prescription medications at home. Review of Systems Review of Systems: All systems reviewed & are unremarkable except as noted in HPI and below PMFSH Past Medical History Medical History Urinary tract infection Healthy female adult Surgical History Surgical History Previous section x3 Social History Social History Smoking status: Never smoker Second hand tobacco smoke exposure: No Alcohol intake: never Alcohol use details: OCCASSIONAL Substance use: never Substance use type: marijuana Do You Feel Safe in your Home?: Yes Lack of Transportation: No Lack of Food: Never True Current Housing: I Have Housing Concerned About Future Housing: No Difficulty Paying Gas/Electric Bills: No Difficulty Paying for Meds: No Currently Unemployed: No Education: Don't Know Difficulty w/ Childcare or Family Care: No Living arrangements: with family Additional living arrangements comments: with parents and children Gender identity (if verbalized by the patient): Female Spiritual care concerns: No Meds Home Medications and Allergies Home Medications ?Medication ?Instructions ?Recorded ?Confirmed ?Type No Home Medications 07/04/24 07/04/24 History Allergies Allergy/AdvReac Type Severity Reaction Status Date / Time cephalexin Allergy Mild HIVES Verified 07/03/24 18:55 Vital Signs Vital Signs - 24 hr 07/03/24 18:51 07/03/24 22:15 07/04/24 01:39 Temperature 102.8 F H 98.8 F Pulse Rate 121 H 106 H 100 Respiratory Rate 18 26 H 14 Blood Pressure 142/81 H 134/82 129/76 Pulse Oximetry 97 97 100 Oxygen Delivery Room Air 07/04/24 06:45 07/04/24 08:00 07/04/24 08:42 Temperature 99 F Pulse Rate 90 Respiratory Rate 18 Blood Pressure 143/73 H Pulse Oximetry 95 96 Oxygen Delivery Room Air Room Air Exam Narrative: HEENT: Atraumatic, PERRL, EOMI, anicteric, moist mucosa. NECK: Supple. Lungs: Clear bilaterally. Heart: RRR, no murmurs. Abdomen: Soft, non-tender, obese, +ve BS X4 Quadrants. Extremities: Acyanotic, no edema. Neuro: Well oriented. CN II-XII grossly intact. Psych: Pleasant and co-operative. H&P: Results Labs Labs: Short CBC 07/03/24 Range/Units 22:12 WBC 14.0 H (4.5-10.0) K/mm3 Hgb 12.4 (12.0-15.0) g/dL Hct 36.7 L (37.0-47.0) % Plt Count 193 D (150-375) k/mm3 BMP 07/03/24 22:12 Sodium 136 L Potassium 3.6 Chloride 103 Carbon Dioxide 24 BUN 11 Creatinine 0.90 Glucose 102 Calcium 8.8 Liver Function 07/03/24 Range/Units 22:12 Total Bilirubin 0.9 (0.2-1.3) mg/dL AST 27 (14-36) U/L ALT 31 (6-35) U/L Alkaline Phosphatase 80 (38-126) U/L Albumin 4.1 (3.5-5.1) g/dL Urine 07/04/24 Range/Units 00:21 Urine Color Dark yellow (Yellow) Urine Appearance Cloudy H (Clear) Urine pH 5.5 (5.0-9.0) Ur Specific [place] 1.030 (1.001-1.035) Urine Protein 4+ H (Negative) mg/dL Urine Glucose (UA) Negative (Negative) mg/dL Assessment and Plan Assessment and plan (1) Pyelonephritis: Code(s): N12 - Tubulo-interstitial nephritis, not specified as acute or chronic Status: Acute Assessment and Plan: - UA positive for UTI and pt reporting mario. pelvic and lower back pain. - Blood and urine cultures collected. - Patient currently on Azactam and given a dose of Levaquin IV in ER. - Continue IV abx as we follow cultures. - Previous Urine culture 05/13 grew Staph. Saprophyticus and pt treated with Macrobid. (2) Lobar pneumonia: Code(s): J18.1 - Lobar pneumonia, unspecified organism Status: Acute Assessment and Plan: - CXR with possible PNA. - Patient on Azactam and Azithromycin IV. - Lateral CXR ordered. - Follow repeat CXR. (3) Pelvic pain: Code(s): R10.2 - Pelvic and perineal pain Status: Acute Assessment and Plan: - Likely related to Pyelonephritis. - Continue pain meds PRN. (4) Leukocytosis: Code(s): D72.829 - Elevated white blood cell count, unspecified Status: Acute Assessment and Plan: - Likely related to UTI vs/+ possible PNA. - Monitor trend with IV abx. (5) Morbid (severe) obesity due to excess calories: Code(s): E66.01 - Morbid (severe) obesity due to excess calories Status: Acute Assessment and Plan: - Encouraged with lifestyle modification. Plan - Continue IV abx as we follow cultures and lateral CXR. Quality VTE Prophylaxis VTE prophylaxis: mechanical ordered and pharmacologic ordered Hospitalist MIPS Advance Care Plan I have confirmed that the patient's Advanced Care Plan is present, code status is documented, or surrogate decision maker is listed in patient medical record.: Yes Medication Reconciliation I have utilized all available resources to obtain, update and review the patients current medications (includes all prescriptions, OTC, herbals, cannabis, and nutritional supplements).: Yes
[2024-07-04 21:10] VITALS: BP 111/59; PULSE 87; RESP 16; TEMP 36.4; O2SAT 96
[2024-07-05 00:55] VITALS: BP 138/69; PULSE 77; RESP 18; TEMP 36.9; O2SAT 98
[2024-07-05] MEDS: ACETAMINOPHEN 325 MG TABLET 650 MG PO ×2 (03:14→12:47)
[2024-07-05] MEDS: AZTREONAM 2 GM in SODIUM CHLORIDE 0.9% IV 100 ML 200 ML IVPB ×2 (03:14→10:23)
[2024-07-05 05:35] VITALS: BP 125/75; PULSE 78; RESP 20; TEMP 36.1; O2SAT 98
[2024-07-05] MEDS: ENOXAPARIN 40 MG/0.4 ML SYRINGE SUB-Q (08:25)
--- NOTE | 2024-07-05 09:06 | WPDCDIQUERY2 ---
CDI Query Clarification Request Sepsis has been documented by ER physician. Please clarify Sepsis has been ruled in or ruled out. Clinical findings: WBC: 14.0, Lactic acid: 0.7, 1 out of 2 blood cultures positive with gram negative bacilli isolated. Treatment: Aztreonam Q8hr IVPB, Levofloxacin IVPB x1, Azithromycin IVPB x1 <Rosalee Palm RN - Last Filed: 07/05/24 09:15> Clarified Diagnosis Clarified Diagnosis: yes sepsis <Sophie Dalton APRN - Last Filed: 07/05/24 12:37>
--- NOTE | 2024-07-05 12:37 | PM.IMPN ---
Progress Note: A&P Assessment and Plan (1) Pyelonephritis: Code(s): N12 - Tubulo-interstitial nephritis, not specified as acute or chronic Status: Acute Assessment and Plan: - UA positive for UTI and pt reporting mario. pelvic and lower back pain. - Blood and urine cultures collected. - Patient currently on Azactam and given a dose of Levaquin IV in ER. - Continue IV abx as we follow cultures. - Previous Urine culture 05/13 grew Staph. Saprophyticus and pt treated with Macrobid. (2) Lobar pneumonia: Code(s): J18.1 - Lobar pneumonia, unspecified organism Status: Acute Assessment and Plan: - CXR with possible PNA. - Patient on Azactam and Azithromycin IV. - Lateral CXR ordered. - Follow repeat CXR. -need strep pneumo coverage- discussed with pharm ID-will add azithromyacin and changed azactam to rocephin (3) Pelvic pain: Code(s): R10.2 - Pelvic and perineal pain Status: Acute Assessment and Plan: - Likely related to Pyelonephritis. - Continue pain meds PRN. (4) Leukocytosis: Code(s): D72.829 - Elevated white blood cell count, unspecified Status: Acute Assessment and Plan: - Likely related to UTI vs/+ possible PNA. - Monitor trend with IV abx. (5) Morbid (severe) obesity due to excess calories: Code(s): E66.01 - Morbid (severe) obesity due to excess calories Status: Acute Assessment and Plan: - Encouraged with lifestyle modification. (6) Sepsis: Code(s): A41.9 - Sepsis, unspecified organism Status: Acute Assessment and Plan: Meets septis criteria: RR>20 (22), HR >90 (101), WBC >12 (14) Likely related to UTI vs/+ possible PNA. discussed with pharm ID- changes were made to antibiotic tx repeat bc ordered daily labs ordered Plan - Continue IV abx as we follow cultures and lateral CXR. Time Spent With Patient Time with patient: 25 - 35 minutes Subjective Date/time seen: 07/05/24 12:37 Interval history: Narrative: Patient presented to the ER with reports of increased generalized muscle weakness, fevers, low-back pain, poor appetite, within the last 3 days prior to her presentation. Patient also reported intermittent cough episodes but no sputum. Patient denies any significant urinary symptoms and states she had a UTI years ago and was treated outpatient. Pt denies any recent travels, denies sick contacts, and denies drinking water from external water sources. Initial work-up labs are significant for Leukocytosis, UA with possible UTI, and CXR with possible left basilar infiltrates. Patient not on any prescription medications at home. pt is seen and examined. somewhat nauseated- but overall feeling ok. headache earlier but just took tylenol. Review of Systems Review of Systems: All systems reviewed & are unremarkable except as noted in HPI and below Exam Narrative: HEENT: Atraumatic, PERRL, EOMI, anicteric, moist mucosa. NECK: Supple. Lungs: Clear bilaterally. Heart: RRR, no murmurs. Abdomen: Soft, non-tender, obese, +ve BS X4 Quadrants. Extremities: Acyanotic, no edema. Neuro: Well oriented. CN II-XII grossly intact. Psych: Pleasant and co-operative. Objective Data Vital Signs Vital Signs: Vital Signs - 24 hr 07/04/24 14:00 07/04/24 21:10 07/05/24 00:55 Temperature 100.2 F H 97.6 F 98.5 F Pulse Rate 101 H 87 77 Respiratory Rate 22 H 16 18 Blood Pressure 116/71 111/59 L 138/69 Pulse Oximetry 100 96 98 Oxygen Delivery 07/05/24 05:35 07/05/24 08:00 Temperature 97 F L Pulse Rate 78 Respiratory Rate 20 Blood Pressure 125/75 Pulse Oximetry 98 Oxygen Delivery Room Air Intake/Output Intake/Output: Intake & Output 07/02/24 07/03/24 07/04/24 07/05/24 23:59 23:59 23:59 23:59 Intake Total 2518 1190 Output Total 1 Balance 5758 1189 Meds/Results Medications: Active Medications Generic Name Dose Route Start Last Admin Trade Name Freq PRN Reason Stop Dose Admin Acetaminophen 650 mg 07/04/24 13:42 07/05/24 03:14 Acetaminophen 325 Mg Tablet PO 650 mg Q6H PRN Administration Mild Pain (1-3) or Fever Enoxaparin Sodium 40 mg 07/05/24 09:00 07/05/24 08:25 Enoxaparin 40 Mg/0.4 Ml Syringe SUB-Q 40 mg DAILY TARSHA Administration Aztreonam 2 gm/ Sodium 100 mls @ 200 mls/hr 07/04/24 11:00 07/05/24 10:53 Chloride IVPB Infused Q8H TARSHA Infusion Ondansetron HCl 4 mg 07/04/24 13:42 07/04/24 14:34 Ondansetron Inj 4 Mg/2 Ml Vial IV PUSH 4 mg Q6H PRN Administration Nausea And Vomiting Radiology Results: ITS Impressions Chest X-Ray 07/04/24 16:27 IMPRESSION: 1. No acute cardiopulmonary disease. Quality VTE Prophylaxis VTE prophylaxis: mechanical ordered and pharmacologic ordered
[2024-07-05 14:49] VITALS: BP 108/63; PULSE 87; RESP 16; TEMP 36.2; O2SAT 98
[2024-07-05] MEDS: cefTRIAXone 2 GM/NS 100 ML 2 GM/100 ML BAG IVPB (17:16)
[2024-07-05] MEDS: AZITHROMYCIN 250 MG TABLET 500 MG PO (17:16)
[2024-07-05 21:18] VITALS: BP 117/63; PULSE 86; RESP 14; TEMP 36.8; O2SAT 98
[2024-07-06 05:12] VITALS: BP 110/68; PULSE 75; RESP 16; TEMP 36.7; O2SAT 97
[2024-07-06 07:03] LABS: Hematocrit 32.9 % (37.0-47.0); Hemoglobin 11.1 g/dL (12.0-15.0); Mean Corpuscular HGB Conc 33.7 g/dl (32-36); Mean Corpuscular Hemoglobin 28.5 pg (26-34); Mean Corpuscular Volume 84.6 fl (80-100); Mean Platelet Volume 10.2 fl (7.4-10.4); Platelet Count Result 227 k/mm3 (150-375); Red Blood Count 3.89 M/mm3 (4.2-5.4); Red Cell Distribution Width 12.6 % (11.5-14.5); White Blood Count 6.2 K/mm3 (4.5-10.0)
[2024-07-06 07:09] LABS: Anion Gap 5 mmol/L (4-12); Blood Urea Nitrogen 11 mg/dL (7-17); Calcium 8.6 mg/dL (8.4-10.2); Carbon Dioxide 25 mmol/L (22-30); Chloride 108 mmol/L (98-107); Estimated CRCL calculation 119 ml/min; Estimated Glomerular Filt Rate > 60; Glucose 86 mg/dL (65-110); Potassium 3.7 mmol/L (3.4-5.0); Sodium 138 mmol/L (137-145)
[2024-07-06] MEDS: ENOXAPARIN 40 MG/0.4 ML SYRINGE SUB-Q (09:03)
--- NOTE | 2024-07-06 11:10 | P.PNIM_ITS ---
Progress Note: A&P Assessment and Plan (1) Pyelonephritis: Code(s): N12 - Tubulo-interstitial nephritis, not specified as acute or chronic Status: Acute Assessment and Plan: - UA positive for UTI and pt reporting mario. pelvic and lower back pain. - Blood and urine cultures collected. - Patient currently on Azactam and given a dose of Levaquin IV in ER. - Continue IV abx as we follow cultures. - Previous Urine culture 05/13 grew Staph. Saprophyticus and pt treated with Macrobid. 07/06 currently on ceftriaxone, azithromycin bc repeat ordered (2) Lobar pneumonia: Code(s): J18.1 - Lobar pneumonia, unspecified organism Status: Acute Assessment and Plan: - CXR with possible PNA. - Patient on Azactam and Azithromycin IV. - Lateral CXR ordered. - Follow repeat CXR. -need strep pneumo coverage- discussed with pharm ID-will add azithromyacin and changed azactam to rocephin (3) Pelvic pain: Code(s): R10.2 - Pelvic and perineal pain Status: Acute Assessment and Plan: - Likely related to Pyelonephritis. - Continue pain meds PRN. (4) Leukocytosis: Code(s): D72.829 - Elevated white blood cell count, unspecified Status: Acute Assessment and Plan: - Likely related to UTI vs/+ possible PNA. - Monitor trend with IV abx. (5) Morbid (severe) obesity due to excess calories: Code(s): E66.01 - Morbid (severe) obesity due to excess calories Status: Acute Assessment and Plan: - Encouraged with lifestyle modification. (6) Sepsis: Code(s): A41.9 - Sepsis, unspecified organism Status: Acute Assessment and Plan: Meets septis criteria: RR>20 (22), HR >90 (101), WBC >12 (14) Likely related to UTI vs/+ possible PNA. discussed with pharm ID- changes were made to antibiotic tx repeat bc ordered daily labs ordered 07/06- repeated BC, wbc back to normal- improved Plan - Continue IV abx as we follow cultures and lateral CXR. Time Spent With Patient Time with patient: 25 - 35 minutes Subjective Date/time seen: 07/06/24 11:10 Interval history: Narrative: Patient presented to the ER with reports of increased generalized muscle we akness, fevers, low-back pain, poor appetite, within the last 3 days prior to her presentation. Patient also reported intermittent cough episodes but no sputum. Patient denies any significant urinary symptoms and states she had a UTI years ago and was treated outpatient. Pt denies any recent travels, denies sick contacts, and denies drinking water from external water sources. Initial work-up labs are significant for Leukocytosis, UA with possible UTI, and CXR with possible left basilar infiltrates. Patient not on any prescription medications at home. pt is seen and examined. somewhat nauseated- but overall feeling ok. headache earlier but just took tylenol. 07/06- seen and examined. WBC improved today. BC collected this am. WBC improved. If BC negative in am- will downgrade to PO antibiotics and discharge home. Review of Systems Review of Systems: All systems reviewed & are unremarkable except as noted in HPI and below Exam Narrative: HEENT: Atraumatic, PERRL, EOMI, anicteric, moist mucosa. NECK: Supple. Lungs: Clear bilaterally. Heart: RRR, no murmurs. Abdomen: Soft, non-tender, obese, +ve BS X4 Quadrants. Extremities: Acyanotic, no edema. Neuro: Well oriented. CN II-XII grossly intact. Psych: Pleasant and co-operative. Objective Data Vital Signs Vital Signs: Vital Signs - 24 hr 07/05/24 14:49 07/05/24 20:00 07/05/24 21:18 Temperature 97.2 F L 98.2 F Pulse Rate 87 86 Respiratory Rate 16 14 Blood Pressure 108/63 117/63 Pulse Oximetry 98 98 Oxygen Delivery Room Air 07/06/24 05:12 07/06/24 08:00 Temperature 98.1 F Pulse Rate 75 Respiratory Rate 16 Blood Pressure 110/68 Pulse Oximetry 97 Oxygen Delivery Room Air Intake/Output Intake/Output: Intake & Output 07/03/24 07/04/24 07/05/24 07/06/24 23:59 23:59 23:59 23:59 Intake Total 7118 1730 536 Output Total 1 Balance 0954 2179 536 Meds/Results Medications: Active Medications Generic Name Dose Route Start Last Admin Trade Name Freq PRN Reason Stop Dose Admin Acetaminophen 650 mg 07/04/24 13:42 07/05/24 12:47 Acetaminophen 325 Mg Tablet PO 650 mg Q6H PRN Administration Mild Pain (1-3) or Fever Azithromycin 500 mg 07/05/24 18:00 07/05/24 17:16 Azithromycin 250 Mg Tablet PO 07/08/24 18:01 500 mg DAILY@1800 TARSHA Administration Enoxaparin Sodium 40 mg 07/05/24 09:00 07/06/24 09:03 Enoxaparin 40 Mg/0.4 Ml Syringe SUB-Q 40 mg DAILY TARSHA Administration Ceftriaxone Sodium 2 gm in 100 mls @ 200 mls/hr 07/05/24 18:00 07/05/24 17:45 Rocephin 2 Gm/Ns 100 Ml IVPB Infused Q24H TARSHA Infusion Ondansetron HCl 4 mg 07/04/24 13:42 07/04/24 14:34 Ondansetron Inj 4 Mg/2 Ml Vial IV PUSH 4 mg Q6H PRN Administration Nausea And Vomiting Radiology Results: ITS Impressions Chest X-Ray 07/04/24 16:27 IMPRESSION: 1. No acute cardiopulmonary disease. Labs Labs: Laboratory Results - last 24 hr 07/06/24 06:35 WBC 6.2 RBC 3.89 L Hgb 11.1 L Hct 32.9 L MCV 84.6 MCH 28.5 MCHC 33.7 RDW 12.6 Plt Count 227 MPV 10.2 Sodium 138 Potassium 3.7 Chloride 108 H Carbon Dioxide 25 Anion Gap 5 BUN 11 Creatinine 0.62 L Estim Creat Clear Calc 119 Estimated GFR > 60 Glucose 86 Calcium 8.6 Quality VTE Prophylaxis VTE prophylaxis: mechanical ordered and pharmacologic ordered
[2024-07-06 14:00] VITALS: BP 116/56; PULSE 92; RESP 18; TEMP 36.3; O2SAT 98
[2024-07-06] MEDS: AZITHROMYCIN 250 MG TABLET 500 MG PO (17:00)
[2024-07-06] MEDS: cefTRIAXone 2 GM/NS 100 ML 2 GM/100 ML BAG IVPB (17:52)
[2024-07-06] MEDS: ONDANSETRON INJ 4 MG/2 ML VIAL IV PUSH (18:21)
[2024-07-06 20:27] VITALS: BP 115/62; PULSE 85; RESP 20; TEMP 36.5; O2SAT 97
[2024-07-07 04:21] VITALS: BP 96/60; PULSE 67; RESP 20; TEMP 36.2; O2SAT 96
[2024-07-07 06:49] LABS: Hematocrit 34.2 % (37.0-47.0); Hemoglobin 11.4 g/dL (12.0-15.0); Mean Corpuscular HGB Conc 33.3 g/dl (32-36); Mean Corpuscular Hemoglobin 28.5 pg (26-34); Mean Corpuscular Volume 85.5 fl (80-100); Mean Platelet Volume 9.9 fl (7.4-10.4); Platelet Count Result 272 k/mm3 (150-375); Red Cell Distribution Width 12.4 % (11.5-14.5); White Blood Count 6.8 K/mm3 (4.5-10.0)
[2024-07-07 07:03] LABS: Anion Gap 5 mmol/L (4-12); Blood Urea Nitrogen 11 mg/dL (7-17); Calcium 8.5 mg/dL (8.4-10.2); Carbon Dioxide 25 mmol/L (22-30); Chloride 108 mmol/L (98-107); Estimated CRCL calculation 117 ml/min; Estimated Glomerular Filt Rate > 60; Glucose 92 mg/dL (65-110); Potassium 3.7 mmol/L (3.4-5.0); Sodium 138 mmol/L (137-145)
[2024-07-07] MEDS: ENOXAPARIN 40 MG/0.4 ML SYRINGE SUB-Q (09:20)
--- NOTE | 2024-07-07 10:39 | P.DS_ITS ---
DS: Admitting Diagnosis Discharge Date 07/07 Admitting Diagnosis gen weakness, fever DS: Discharge Diagnosis Discharge Diagnosis (1) Pyelonephritis: Code(s): N12 - Tubulo-interstitial nephritis, not specified as acute or chronic Status: Acute Assessment and Plan: - UA positive for UTI and pt reporting mario. pelvic and lower back pain. - Blood and urine cultures collected. - Patient currently on Azactam and given a dose of Levaquin IV in ER. - Continue IV abx as we follow cultures. - Previous Urine culture 05/13 grew Staph. Saprophyticus and pt treated with Macrobid. 07/06 currently on ceftriaxone, azithromycin bc repeat ordered (2) Lobar pneumonia: Code(s): J18.1 - Lobar pneumonia, unspecified organism Status: Acute Assessment and Plan: - CXR with possible PNA. - Patient on Azactam and Azithromycin IV. - Lateral CXR ordered. - Follow repeat CXR. -need strep pneumo coverage- discussed with pharm ID-will add azithromyacin and changed azactam to rocephin (3) Pelvic pain: Code(s): R10.2 - Pelvic and perineal pain Status: Acute Assessment and Plan: - Likely related to Pyelonephritis. - Continue pain meds PRN. (4) Leukocytosis: Code(s): D72.829 - Elevated white blood cell count, unspecified Status: Acute Assessment and Plan: - Likely related to UTI vs/+ possible PNA. - Monitor trend with IV abx. (5) Morbid (severe) obesity due to excess calories: Code(s): E66.01 - Morbid (severe) obesity due to excess calories Status: Acute Assessment and Plan: - Encouraged with lifestyle modification. (6) Sepsis: Code(s): A41.9 - Sepsis, unspecified organism Status: Acute Assessment and Plan: Meets septis criteria: RR>20 (22), HR >90 (101), WBC >12 (14) Likely related to UTI vs/+ possible PNA. discussed with pharm ID- changes were made to antibiotic tx repeat bc ordered daily labs ordered 07/06- repeated BC, wbc back to normal- improved Plan - Continue IV abx as we follow cultures and lateral CXR. DS: Summary Hospital Course Hospital Course: Patient presented to the ER with reports of increased generalized muscle weakness, fevers, low-back pain, poor appetite, within the last 3 days prior to her presentation. Patient also reported intermittent cough episodes but no sputum. Patient denies any significant urinary symptoms and states she had a UTI years ago and was treated outpatient. Pt denies any recent travels, denies sick contacts, and denies drinking water from external water sources. Initial work-up labs are significant for Leukocytosis, UA with possible UTI, and CXR with possible left basilar infiltrates. Patient not on any prescription medications at home. # Pyelonephritis UA positive for UTI and pt reporting mario. pelvic and lower back pain. - Blood and urine cultures collected. - Patient currently on Azactam and given a dose of Levaquin IV in ER. - Continue IV abx as we follow cultures. - Previous Urine culture 05/13 grew Staph. Saprophyticus and pt treated with Macrobid. 07/06 currently on ceftriaxone, azithromycin. Azithromycin was stopped. bc repeat ordered- prelim negative so far. She will be discharged with 7 days of levaquin 750 mg. Rx sent to pt's pharmacy. # pneumonia CXR with possible PNA. - Patient on Azactam and Azithromycin IV. -need strep pneumo coverage- discussed with pharm ID-will add azithromycin and changed azactam to rocephin today 07/07- repeated BC negative- will switch to PO antibiotics- levaquin 750 mg daily x 7 days Status at Discharge Functional status at discharge: independent ambulation Overall status at discharge: patient is progressing back to baseline Time Spent with Patient Time attestation: Total time spent providing and/or coordinating discharge services: Time spent: Greater than 30 minutes Exam Narrative: HEENT: Atraumatic, PERRL, EOMI, anicteric, moist mucosa. NECK: Supple. Lungs: Clear bilaterally. Heart: RRR, no murmurs. Abdomen: Soft, non-tender, obese, +ve BS X4 Quadrants. Extremities: Acyanotic, no edema. Neuro: Well oriented. CN II-XII grossly intact. Psych: Pleasant and co-operative. Const: General: comfortable DS: Data Data Completed and Pending Labs on day of discharge: Labs from last 24 hours 07/07/24 06:22 WBC 6.8 RBC 4.00 L Hgb 11.4 L Hct 34.2 L MCV 85.5 MCH 28.5 MCHC 33.3 RDW 12.4 Plt Count 272 MPV 9.9 Sodium 138 Potassium 3.7 Chloride 108 H Carbon Dioxide 25 Anion Gap 5 BUN 11 Creatinine 0.63 L Estim Creat Clear Calc 117 Estimated GFR > 60 Glucose 92 Calcium 8.5 Preliminary micro results at discharge 07/06/24 06:39 Blood Culture - Preliminary Blood 07/06/24 06:35 Blood Culture - Preliminary Blood 07/04/24 00:15 Blood Culture - Preliminary Blood Escherichia Coli 07/04/24 00:15 Blood Culture - Preliminary Blood Discharge Plan Discharge Attending physician on discharge: Adeola Zelaya Consulting providers: Deacon Glover Discharging Clinician: Sophie Dalton Patient Disposition: Home, Self-Care Activity: may shower Diet: as tolerated and regular Discharge Instructions: please finish antibiotics- you will need 7 days of levaquin. Start taking it today, 07/07 at 7 pm. Take probiotics over the counter to prevent diarrhea. We will call you if your blood cultures final result will be different. Please follow up with your PCP within a week. Patient Instructions: Antibiotic Form Patient Language: Estonian Stand Alone Forms: General Discharge Information Follow-up/Referrals: PHYSICIAN,VALVE INSERTER [Primary Care Provider] - 1 Week Discharge Medications: New levofloxacin 750 mg tablet 750 mg PO DAILY 7 Days Qty: 7 0RF Date of admission: 07/05/24 10:41 Primary Care Provider: PHYSICIAN,VALVE INSERTER Admitting Provider: Christen Morris V. Attending physician on admission: Adeola Zelaya Condition: Improved Quality VTE Prophylaxis VTE prophylaxis: mechanical ordered and pharmacologic ordered Hospitalist MIPS Heart Failure (Exclusion) Patient has history of Heart Transplant or Left Ventricular Assistive Device?: No IF YES, STOP HERE Heart Failure (Qualifier) Patient has current or prior documentation of LVEF less than or equal to 40%, or mod/servere depressed LVSF?: No IF NO, STOP HERE
--- OUTSIDE RECORDS SUMMARY | 2024-07-11 03:18 | XMS_ITS | Encounter Summary ---
Author Organization [facility] Address [address] [place] [address] Care Team Providers Care Manufacturing Quality Technician Name Role Phone [facility] Primary Care Provider Encounter Details Date Type Department Care Team (Latest Contact Info) Description 10/02/2019 Travel Social History Tobacco Use Types Packs/Day Years Used Date Smoking Tobacco: Never Assessed Sex and Gender Information Value Date Recorded Sex Assigned at Not on file Gender Identity Not on file Sexual Orientation Not on file COVID-19 Exposure Response Date Recorded In the last month, have you been in contact with someone who was confirmed or suspected to have Coronavirus / COVID-19? No / Unsure 10/02/2019 11:52 AM CDT documented as of this encounter Plan of Treatment Not on file documented as of this encounter Visit Diagnoses Not on filedocumented in this encounter Care Teams Manufacturing Quality Technician Relationship Specialty Start Date End Date [facility] [address] [place] [address] PCP - General 10/02/19 documented as of this encounter
--- OUTSIDE RECORDS SUMMARY | 2024-07-11 03:18 | XMS_ITS | Referral Summary ---
Author Organization [facility] Address [address] [place] [address] Care Team Providers Care Candy Depositing Machine Operator Name Role Phone [facility] Primary Care Provider Source Comments [facility],non-owned Affiliates and Associated Physician Practices is amultiple site organization consisting of ambulatory clinics and hospital sitesin [place], [place], [place] and [place]. This disclosure is being madepursuant to the Care Everywhere program and may not contain all information available regarding this patient. Last updated 18.[facility] Allergies Active Allergy Reactions Criticality Noted Date Comments Cephalexin Urticaria Medium 10/02/2019 Medications * Be aware that medications may not be up to date on this document. Alwaysverify current medications with the patient. Medication Sig Dispensed Refills Start Date End Date Status etonogestrel (NEXPLANON) 68 MG implant 68 mg by Subdermal route as directed Active Social History Tobacco Use Types Packs/Day Years Used Date Smoking Tobacco: Never Smokeless Tobacco: Never Sex and Gender Information Value Date Recorded Sex Assigned at Not on file Gender Identity Not on file Sexual Orientation Not on file Last Filed Vital Signs Vital Sign Reading Time Taken Comments Blood Pressure 118/80 10/02/2019 12:05 PM CDT Pulse 107 10/02/2019 12:05 PM CDT Temperature 36.8 ??C (98.3 ??F) 10/02/2019 12:05 PM C DT Respiratory Rate 14 10/02/2019 12:05 PM CDT Oxygen Saturation 97% 10/02/2019 12:05 PM CDT Inhaled Oxygen Concentration - - Weight 96.6 kg (213 lb) 10/02/2019 12:05 PM CDT Height 157.5 cm (5' 2 ) 10/02/2019 12:05 PM CDT Body Mass Index 38.96 10/02/2019 12:05 PM CDT Plan of Treatment Not on file Care Teams Candy Depositing Machine Operator Relationship Specialty Start Date End Date [facility] [address] [place] [id number] PCP - General 10/02/19
--- OUTSIDE RECORDS SUMMARY | 2024-07-11 03:18 | XMS_ITS | Patient Health Summary ---
Author Organization [facility] Address [address] [place] [address] Care Team Providers Care Human Resources Administrator Name Role Phone [facility] Primary Care Provider Note from [facility],non-owned Affiliates and Associated Physician Practices is amultiple site organization consisting of ambulatory clinics and hospital sitesin [place] and [place]. This disclosure is being madepursuant to the Care Everywhere program and may not contain all information available regarding this patient. Last updated 18.[facility] Allergies * Cephalexin(Urticaria) -Medium Criticality Medications * Be aware that medications may not be up to date on this document. Alwaysverify current medications with the patient. * etonogestrel (NEXPLANON) 68 MG implant 68 mg by Subdermal route as directed Social History Tobacco Use Types Packs/Day Years [...] Mass Index 38.96 10/02/2019 12:05 PM CDT Procedures * CULTURE URINE(Performed 10/02/2019) Performed for Cystitis with hematuria * URINALYSIS AUTO - POINT OF CARE (AMB) STL(Performed 10/02/2019) Performed for Cystitis with hematuria Results * (ABNORMAL) CULTURE URINE (10/02/2019 12:13 PM CDT) Urine Culture Routine Final report(A) [facility] INSURANCE BILL Result 1 Escherichia coli(A) [facility] INSURANCE BILL Comment: 25,000-50,000 colony forming units per mL Cefazolin <=4 ug/mL Cefazolin with an GRICEL <=16 predicts susceptibility to the oral agents cefaclor, cefdinir, cefpodoxime, cefprozil, cefuroxime, cephalexin, and loracarbef when used for therapy of uncomplicated urinary tract infections due to E. coli, Klebsiella pneumoniae, and Proteus mirabilis. Antimicrobial Susceptibility [facility] INSURANCE BILL Comment: ? S = Susceptible; I = Intermediate; R = Resistant ? P = Positive; N = Negative ?MICS are expressed in micrograms per mL ?? Antibiotic ? RSLT#1 ?RSLT#2 ?RSLT#3 ?RSLT#4 Amoxicillin/Clavulanic Acid ?S Ampicillin ? R Cefepime ? S Ceftriaxone ?S Cefuroxime ? S Ciprofloxacin ?S Ertapenem ?S Gentamicin ? S Imipenem ? S Levofloxacin ? S Meropenem ?S Nitrofurantoin ? S Piperacillin/Tazobactam ?S Tetracycline ? S Tobramycin ? S Trimethoprim/Sulfa ? S Urine URINE SPECIMEN OBTAINED BY CLEAN CATCH PROCEDURE / Unknown 10/02/2019 12:13 PM CDT 10/02/2019 Narrative Resulting Agency Comment Lab Testing performed at: [address] ??[facility] [id number] Dina BUCKINVESTIGATION DIVISION [facility]TAIN [facility] - MICROBIO LOGY ORDERABLES [facility] INSURANCE BILL [address] [place] [address] * (ABNORMAL) URINALYSIS AUTO - POINT OF CARE (AMB) STL (10/02/2019) Clarity UA POCT clear Color UA POCT AZO Leukocyte UA AZO Negative Nitrite UA POCT AZO Negative Urobilinogen UA 0.0(A) 0.1 - 1.0 Protein UA POCT AZO Negative pH UA 0.0(A) 5.0 - 8.0 pH units Blood UA ++ Negative Specific [place] UA POCT 0.0(A) 1.002 - 1.030 Ketone UA AZO Negative Bilirubin UA POCT AZO Negative Glucose UA AZO Negative Expiration Date 03/22/2021 Lot # [id number] QC Verified Yes Yes Urine URINE / Unknown 10/02/2019 Dina Squires APRN-INVESTIGATION DIVISION [facility] - POINT OF CARE ORDERABLES Care Teams Human Resources Administrator Relationship Specialty Start Date End Date [facility] [address] [place] [address] PCP - General 10/02/19
--- OUTSIDE RECORDS SUMMARY | 2024-07-11 03:18 | XMS_ITS | Encounter Summary ---
Author Organization [facility] Address [address] [place] [address] Care Team Providers Care Patcher Name Role Phone [facility] Primary Care Provider Reason for Visit * Reason Comments Bladder infection Encounter Details Date Type Department Care Team (Late st Contact Info) Description 10/02/2019 12:00 PM CDT Office Visit [facility] [address] [place] [address] Provider, Debra Exp [address] Cystitis with hematuria (Primary Dx) Social History Tobacco Use Types Packs/Day Years [...] AM CDT documented as of this encounter Last Filed Vital Signs Vital Sign Reading [...] Mass Index 38.96 10/02/2019 12:05 PM CDT documented in this encounter Patient Instructions * Patient Instructions* Dina Squires, DAIRY HAND-RUNSTITCHING MACHINE OPERATOR - 10/02/2019 12:16 PM CDT Images from the original note were not included. -Drink as much water as possible to help flush bacteria from your bladder. -May take OTC AZO as directed per package instructions -Finish all of the medication prescribed to you. -Avoid foods and drinks that can irritate your bladder, such as caffeine, alcohol, chocolate, tomato products, coffee and tea, citrus fruits, spicy foods, and carbonated beverages. -Discussed importance of wiping front to back after urinating and urinating before and after intercourse, along with avoiding intercourse until symptoms resolve. -Follow up with [facility] with symptoms that worsen or do not COMPLETELY resolve. Seek care (go to Urgent Care or ER) immediately if: ?? You are urinating very little or not at all. ?? You are nauseous and/or vomiting. ?? You have a high fever with shaking chills. ?? You have side or back pain that gets worse. Contact your primary care doctor or ENVIRONMENTAL SERVICES ASSOCIATE if: ?? You have a fever. ?? You have white or yellow discharge from your vagina. ?? You do not feel better after 2 days of taking antibiotics. ?? You have questions or concerns about your condition or care. Patient Education Urinary Tract Infection TUBE WRAPPER: A urinary tract infection (UTI) is caused by bacteria that get inside your urinary tract. Your urinary tract includes your kidneys, ureters, bladder, and urethra. Urine is made in your kidneys, and it flows from the ureters to the bladder. Urine leaves the bladder through the urethra. A UTI is morecommon in your lower urinary tract, which includes your bladder and urethra. Common signs and symptoms include the following: ?? Fever and chills ?? Pain or burning when you urinate ?? Urine that smells bad or looks cloudy, or blood in your urine ?? Urinating more often or waking from sleep to urinate ?? Sudden, strong need to urinate ?? Pain or pressure in your lower abdomen ?? Leaking urine ?? Confusion or agitation ?? Fatigue, shakiness, and weakness Seek care immediately if: ?? You are urinating very little or not at all. ?? You are vomiting. ?? You have a high fever with shaking chills. ?? You have side or back pain that gets worse. Call your doctor if: ?? You have a fever. ?? You are a woman and you have increased white or yellow discharge from your vagina. ?? You do not feel better after 2 days of taking antibiotics. ?? You have questions or concerns about your condition or care. Treatment: Medicines treat the bacterial infection or decrease pain and burning when you urinate. You may also need medicines to decrease the urge to urinate often. If you have UTIs often (called recurrent UTIs), you may be given antibiotics to take regularly. You will be given directions for when and how to use antibiotics. The goal is to prevent UTIs but not cause antibiotic resistance by usingantibiotics too often. Self-care: ?? Drink liquids as directed. Liquids can help flush bacteria from your urinary tract. Ask how muchliquid to drink each day and which liquids are best for you. You may need to drink more liquids than usual to help flush out the bacteria. Do not drink alcohol, caffeine, and citrus juices. These canirritate your bladder and increase your symptoms. ?? Apply heat on your abdomen for 20 to 30 minutes every 2 hours for as many days as directed. Heathelps decrease discomfort and pressure in your bladder. Prevent a UTI: ?? Urinate when you feel the urge. Do not hold your urine. Bacteria can grow if urine stays in the bladder too long. It may be helpful to urinate at least every 3 to 4 hours. ?? Urinate after you have sex to flush away bacteria that can enter your urinary tract during sex. ?? Wear cotton underwear and clothes that are loose. Tight pants and nylon underwear can trap moisture and cause bacteria to grow. ?? Cranberry juice or cranberry supplements may help prevent UTIs. Your healthcare provider can recommend the right juice or supplement for you. ?? Women should wipe front to back after urinating or having a bowel movement. This may prevent germs from getting into the urinary tract. Do not douche or use feminine deodorants. These can change the chemical balance in your vagina. You may also be given vaginal estrogen medicine. This medicine helps prevent recurrent UTIs in women who have gone through menopause or are in alice-menopause. Follow up with your healthcare provider as directed: Write down your questions so you remember to ask them during your visits. ?? Copyright [employer] 2018 Information is for End User's use only and may not be sold, redistributed or otherwise used for commercial purposes. All illustrations and images included in CareNotes?? are the copyrighted property of [employer]. or [employer] The above information is an service aide only. It is not intended as medical advice for individual conditions or treatments. Talk to your doctor, nurse or pharmacist before following any medical regimen to see if it is safe and effective for you. documented in this encounter Progress Notes * Dina Squires APRN-CNP - 10/02/2019 12:05 PM CDT Images from the original note were not included. Kristian Herrera is a 29 year old female who presents to the clinic today for Chief Complaint Patient presents with ??? Bladder infection . Kristian Herrera complains of dysuria, burning with urination, frequency, urgency, hesitancy for 1 day.. Patient denies back pain, vaginal discharge. There is not any concern of sexual abuse. There is not a history of trauma to the genital area. Patient does have a history of recurrent UTI. Patientdoes have a history of pyelonephritis.OTC- AZO with improvement of dysuria. Sick Contacts: NA. Patients PCP is [facility] Past Medical History: Diagnosis Date ??? Patient denies medical problems No family history on file. Current Outpatient Medications Medication Sig Dispense Refill ??? etonogestrel (NEXPLANON) 68 MG implant 68 mg by Subdermal route as directed ??? nitrofurantoin monohyd macro crystals (MACROBID) 100 MG capsule Take 1 capsule by mouth 2 timesdaily with morning and evening meal for 5 days Reasons: Urinary Tract Infection 10 capsule 0 No current facility-administered medications for this visit. Allergies Allergen Reactions ??? Keflex [Cephalexin] Urticaria Social History Socioeconomic History ??? Marital status: Single Spouse name: Not on file ??? Number of children: Not on file ??? Years of education: Not on file ??? Highest education level: Not on file Occupational History ??? Not on file Social Needs ??? Financial resource strain: Not on file ??? Food insecurity Worry: Not on file Inability: Not on file ??? Transportation needs Medical: Not on file Non-medical: Not on file Tobacco Use ??? Smoking status: Never Smoker ??? Smokeless tobacco: Never Used Substance and Sexual Activity ??? Alcohol use: Not on file ??? Drug use: Not on file ??? Sexual activity: Not on file Lifestyle ??? Physical activity Days per week: Not on file Minutes per session: Not on file ??? Stress: Not on file Relationships ??? Social connections Talks on phone: Not on file Gets together: Not on file Attends sikhism service: Not on file Active member of club or organization: Not on file Attends meetings of clubs or organizations: Not on file Relationship status: Not on file ??? Intimate partner violence Fear of current or ex partner: Not on file Emotionally abused: Not on file Physically abused: Not on file Forced sexual activity: Not on file Other Topics Concern ??? Not on file Social History Narrative ??? Not on file Review of Systems Constitutional: Negative for fevers, chills. Respiratory: Negative for acute cough Cardiovascular: Negative Gastrointestinal: Negative for poor appetite, nausea, vomiting, abdominal pain, diarrhea Genitourinary: Positive for dysuria, hesitancy, increased urgency and frequency, and burning with urination. Negative for vaginal discharge Musculoskeletal:Negative for back pain Neurological: Negative Objective: BP 118/80 Pulse 107 Temp 98.3 ??F (36.8 ??C) Resp 14 Ht 1.575 m (5' 2 ) Wt 96.6 kg (213 lb) SpO2 97% BMI 38.96 kg/m2 Exam: General appearance: alert, cooperative, no distress, oriented to person, place, and time, well appearing Head: normocephalic, without trauma Back: No CVA tenderness Lungs: breath sounds normal and symmetric; no rales or wheezes Heart: regular rhythm, normal S1 and S2, without murmurs, gallops or rubs Abdomen: soft without mass, non-tender Neurologic: mental status normal alert Assessment: Encounter Diagnosis Name Primary? Cystitis with hematuria Yes Plan: -Urine culture sent to [facility]. Patient aware clinic will call with results. -Drink as much water as possible to help flush bacteria from your bladder. -May take OTC AZO as directed per package instructions- Be aware this will turn your urine orange. -Discussed potential adverse effects of medications. -Finish all of the medication prescribed to you. . -Reviewed education materials and instructions with patient and answered all questions. -Discussed importance of wiping front to back after urinating and urinating before and after intercourse, along with avoiding intercourse until symptoms resolve. -Avoid foods and drinks that can irritate your bladder, such as caffeine, alcohol, chocolate, tomato products, coffee and tea, citrus fruits, spicy foods, and carbonated beverages. -Kristian Herrera verbalized understanding and agrees with plan. -Follow up with [facility] with symptoms that worsen or do not COMPLETELY resolve. Seek care (go to Urgent Care or ER) immediately if: ?? You are urinating very little or not at all. ?? You are nauseous and/or vomiting. ?? You have a high fever with shaking chills. ?? You have side or back pain that gets worse. Contact your primary care doctor or ENVIRONMENTAL SERVICES ASSOCIATE if: ?? You have a fever. ?? You have white or yellow discharge from your vagina. ?? You do not feel better after 2 days of taking antibiotics. ?? You have questions or concerns about your condition or care. Orders Placed This Encounter ??? CULTURE URINE ??? URINALYSIS AUTO - POINT OF CARE (AMB) STL ??? nitrofurantoin monohyd macro crystals (MACROBID) 100 MG capsule Sig: Take 1 capsule by mouth 2 times daily with morning and evening meal for 5 days Reasons: Urinary Tract Infection Dispense: 10 capsule Refill: 0 Recent Results (from the past 24 hour(s)) URINALYSIS AUTO - POINT OF CARE (AMB) STL Collection Time: 10/02/19 12:00 AM Result Value Ref Range Clarity UA POCT clear Color UA POCT AZO Leukocyte UA AZO Negative Nitrite UA POCT AZO Negative Urobilinogen UA 0.0 (Abnormal) 0.1 - 1.0 Protein UA POCT AZO Negative pH UA 0.0 (Abnormal) 5.0 - 8.0 pH units Blood UA ++ Negative Specific Stephen UA POCT 0.0 (Abnormal) 1.002 - 1.030 Ketone UA AZO Negative Bilirubin UA POCT AZO Negative Glucose UA AZO Negative Expiration Date 03/22/2021 Lot # [id number] QC Verified Yes Yes Dina Squires DNP, BUSINESS ENGLISH INSTRUCTOR-BC 10/02/2019 12:32 PM documented in this encounter Plan of Treatment Not on file documented as of this encounter Procedures Procedure Name Priority Date/Time Associated Diagnosis Comments CULTURE URINE Routine 10/02/2019 12:13 PM CDT Cystitis with hematuria URINALYSIS AUTO - POINT OF CARE (AMB) STL Routine 10/02/2019 Cystitis with hematuria documented in this encounter Results * (ABNORMAL) CULTURE URINE (10/02/2019 12:13 [...] Resulting Agency Comment Lab Testing performed at: [facility] [address] ??[facility] [phone] Dina Squires DAIRY HAND-RUNSTITCHING MACHINE OPERATOR LAB - MICROBIO LOGY ORDERABLES [facility] INSURANCE BILL [address] [place] [address] * (ABNORMAL) URINALYSIS AUTO - POINT OF CARE (AMB) STL (10/02/2019) Clarity UA POCT clear Color UA POCT AZO Leukocyte UA AZO Negative Nitrite UA POCT AZO Negative Urobilinogen UA 0.0(A) 0.1 - 1.0 Protein UA POCT AZO Negative pH UA 0.0(A) 5.0 - 8.0 pH units Blood UA ++ Negative Specific Stephen UA POCT 0.0(A) 1.002 - 1.030 Ketone UA AZO Negative Bilirubin UA POCT AZO Negative Glucose UA AZO Negative Expiration Date 03/22/2021 Lot # [id number] QC Verified Yes Yes Urine URINE / Unknown 10/02/2019 Dina Squires APRN-RUNSTITCHING MACHINE OPERATOR LAB - POINT OF CARE ORDERABLES documented in this encounter Visit Diagnoses Diagnosis Cystitis with hematuria- Primary Cystitis, unspecified documented in this encounter Care Teams Patcher Relationship Specialty Start Date End Date [facility] [address] [place] [id number] PCP - General 10/02/19 documented as of this encounter
--- OUTSIDE RECORDS SUMMARY | 2024-07-11 03:18 | XMS_ITS | Clinical Summary ---
Author Organization [facility] Address [address] [place] [address] Care Team Providers Care Ribbon Sweatband Operator Name Role Phone [facility] Primary Care Provider Source Comments [facility],non-owned Affiliates and Associated Physician Practices is amultiple site organization consisting of ambulatory clinics and hospital sitesin [place], [place], [place] and [place]. This disclosure is being madepursuant to the Care Everywhere program and may not contain all information available regarding this patient. Last updated 18.[facility] Allergies Active Allergy Reactions Criticality Noted Date [...] 10/02/2019 12:05 PM CDT Plan of Treatment Health Maintenance Due Date Last Done Comments PAP SMEAR 1991 HIV SCREENING 2006 HEPATITIS C SCREENING 03/28/2009 DTAP/TDAP/TD VACCINES (1 - Tdap) 2010 HEPATITIS B VACCINE (1 of 3 - 19+ 3-dose series) 2010 COVID-19 VACCINE (1 - 2023-2 5 season) 2024 INFLUENZA VACCINE (#1) 2024 DEPRESSION SCREENING 06/21/2024 ZOSTER VACCINE (1 of 2) 2041 HIB VACCINE Aged Out No longer eligi ble based on patient's age to complete this topic HPV VACCINE Aged Out No longer eligi ble based on patient's age to complete this topic MENINGOCOCCAL (Group B) VACCINE Aged Out No longer eligible based on patient's age to complete this topic MENINGOCOCCAL VACCINE Aged Out No kristine baljit eligible based on patient's age to complete this topic PNEUMOCOCCAL VACCINE Aged Out No long er eligible based on patient's age to complete this topic Care Teams Ribbon Sweatband Operator Relationship Specialty Start Date End Date [facility] [address] [place] [id number] PCP - General 10/02/19
--- OUTSIDE RECORDS SUMMARY | 2024-07-11 03:18 | XMS_ITS | Encounter Summary ---
Author Organization [facility] Address [address] [place] [address] Care Team Providers Care Motor Equipment Sergeant Name Role Phone [facility] Primary Care Provider Reason for Visit * Reason Onset Date Comments Results 10/06/2019 Encounter Details Date Type Department Care Team (Late st Contact Info) Description 10/06/2019 Telephone [facility] [employer] [facility] [address] [place] [address] Provider, Debra Exp Nameoki Results Social History Tobacco Use Types Packs/Day Years [...] AM CDT documented as of this encounter Miscellaneous Notes * Telephone Encounter - Shraddha Palomares - 10/06/2019 9:55 AM CDT Who is calling? self What is the reason for call? Patient called. Returning your call about results Expected Response from the Clinic? results documented in this encounter Plan of Treatment Not on file documented as of this encounter Visit Diagnoses Not on filedocumented in this encounter Care Teams Motor Equipment Sergeant Relationship Specialty Start Date End Date [facility] [address] [place] [id number] PCP - General 10/02/19 documented as of this encounter
--- NOTE | 2024-07-12 09:55 | PC.NURSE ---
Blood cx are negative.
== END 2024-07-07 14:00 | disposition home or self-care (01) | DRG 720 ==
LOC: ANHED 07-04 01:19 → ANH3MEDSUR 07-04 08:42
PROVIDERS: Admitting Provider Internal Medicine; Emergency Provider Emergency Medicine; Visit Provider Nurse Practitioner
DX: A41.9 Sepsis, unspecified organism (principal); N10 Acute pyelonephritis; J18.1 Lobar pneumonia, unspecified organism; E86.0 Dehydration; E66.01 Morbid (severe) obesity due to excess calories; Z68.41 Body mass index [BMI] 40.0-44.9, adult
CPT/HCPCS: 36415; 71045; 80048; 80053; 81001; 81025; 82948; 83605; 83690; 83735; 85025; 85027; 87040; 87086; 87186; 87636; 93005; 96361; 96365; 96367; 96374; 99285; A9270; J0456; J0457; J0696; J1650; J1956; J2405; J7030